=== PATIENT | female | born 1945 | race Caucasian/White ===

== ENCOUNTER → 2017-11-18 | Outpatient (CLI) | payer MEDICARE ==
--- NOTE | 2017-11-19 08:22 | MM ---
Reason for exam: screening (asymptomatic). Last mammogram was performed 1 year and 3 months ago. History: Patient is postmenopausal, has history of breast cancer at age 65, and is nulliparous. Mastectomy of the left breast. Taking antineoplastic for 5 years. Physical Findings: A clinical breast exam by your physician is recommended on an annual basis and results should be correlated with mammographic findings. MG 3D Screening Mammo W/Cad Bilateral CC and MLO view(s) were taken. XCCL view(s) were taken of the right breast. Prior study comparison: August 09, 2016, mammogram, performed at [place]. August 08, 2015, mammogram, performed at [place]. There is a 2.5cm central medial anterior depth right breast mass for which ultrasound will be performed. There are numerous benign appearing right calcifications, similar to priors. New right axillary adenopathy. ASSESSMENT: Incomplete: need additional imaging evaluation, BI-RAD 0 RECOMMENDATION: Ultrasound of the right breast. [facility] will attempt to contact patient to return for ultrasound.
== END | disposition home or self-care (01) ==
LOC: RADMAMWWP 12:28
PROVIDERS: ATTEND Family Medicine
DX: Z12.31 Encounter for screening mammogram for malignant neoplasm of breast (principal)
CPT/HCPCS: 77063; 77067

== ENCOUNTER → 2017-11-22 | Outpatient (CLI) | payer MEDICARE ==
--- NOTE | 2017-11-25 09:10 | USB ---
Reason for exam: additional evaluation requested from abnormal screening. History: Patient is postmenopausal, has history of breast cancer at age 65, and is nulliparous. Mastectomy of the left breast. Taking antineoplastic for 5 years. Physical Findings: Nurse Summary: 2cm nodule, moves (nurse dw). US Breast Workup RT Right complete breast ultrasound includes all four quadrants, the retroareolar region and axilla. Finding demonstrates a 2.8 x 2.0 x 2.4cm irregular, solid, hypoechoic, vascular, irregular lesion at 2 o'clock, highly suspicious for malignancy. Axillary node is normal morphologically. These results were verbally communicated with the patient and result sheet given to the patient on 11/22/17. ASSESSMENT: Highly suggestive of malignancy, BI-RAD 5 RECOMMENDATION: Ultrasound core biopsy of the right breast. Called Dr. Quintanilla with mammographic findings and has scheduled an appointment for the patient for 11/22/17 at 2:[address] Richmond. Biopsy scheduled for 11/27/17 at 2:20. PRELIMINARY REPORT CALLED AND FAXED TO DR. RICHMOND ON 11/25/17.
== END | disposition home or self-care (01) ==
LOC: RADMAMWWP 13:18
PROVIDERS: ATTEND Family Medicine
DX: R92.8 Other abnormal and inconclusive findings on diagnostic imaging of breast (principal)

== ENCOUNTER → 2017-11-22 | Outpatient (CLI) | payer MEDICARE ==
[2017-11-22 14:59] VITALS: BP 125/79; PULSE 73; RESP 18; TEMP 97.8; BMI 33.6
--- NOTE | 2017-11-22 15:21 | P.GSHP ---
History of Present Illness H&P Date: 11/22/17 Mrs. Barrera is a 71-year-old white female who presents with a mass palpable in the right breast. She had recent radiographic workup which revealed an area of concern in the right breast for which ultrasound-guided core biopsy was recommended. The patient states that she does feel a lump in her breast and noted for approximately a week. She denies any pain. She denies any nipple discharge or changes. Of significance is the fact that she is status post left mastectomy approximately 6 years ago. This was done for a stage I breast cancer. The patient did not have radiation therapy and did not have chemotherapy. She did have anti-hormonal therapy with aromatase inhibitor which she stopped approximately a year ago. Family History: 1. patient: left breast mastectomy 2. sister: uterine cancer from this menarhce: 12 : none, single women, patient is a Lesbian and no one significant at this time menopause: 50's hormones: none BCP: none Past surgical history: 1. Left breast mastectomy 2. Tonsillectomy Past medical history: 1.diabetes 2. High cholesterol 3. Hypertension Social history: Smoke: 1/2 PPD for 15 years Stopped 40 years ago Alcohol: occasional Drugs: Negative - Constitutional Constitutional: Denies chills, Denies fever - EENT Eyes: bilateral decreased vision (wears glasses), denies pain Ears: bilateral: tinnitus (occasional), deny: decreased hearing Ears, nose, mouth and throat: Denies headache, Denies sore throat - Breasts Breasts: bilateral: as per HPI - Cardiovascular Cardiovascular: Reports high blood pressure, Denies chest pain, Denies shortness of breath - Respiratory Respiratory: Denies cough, Denies 7 - Gastrointestinal Gastrointestinal: Denies abdominal pain, Denies diarrhea, Denies nausea, Denies vomiting - Menstruation Menstruation: Reports postmenopausal - Musculoskeletal Musculoskeletal: Denies myalgias - Integumentary Integumentary: Denies pruritus, Denies rash - Neurological Neurological: Denies numbness, Denies weakness - Psychiatric Psychiatric: Denies anxiety, Denies depression - Endocrine Endocrine: Denies fatigue, Denies weight change - Hematologic/Lymphatic Comment: asprin, mobic (prn), ibuprofen (prn), vitamen E - Allergic/Immunologic Comment: cats and metformin Past Medical History Past Medical History: Hypertension Past Surgical History: Breast Surgery, Tonsillectomy Smoking Status: Former smoker Surgical - Exam - General well developed, well nourished, no distress - Eyes normal ocular movement, no icteric - ENT no hearing loss, no congestion - Neck no masses, trachea midline - Respiratory normal respiratory effort, clear to auscultation - Cardiovascular Rhythm: regular Heart Sounds: normal: S1, S2 - Abdomen Abdomen: soft, non tender, no guarding, no rigid, no rebound - Neurologic no disoriented, no combative - Musculoskeletal normal gait - Psychiatric oriented to time, oriented to person, oriented to place, speech is normal, memory intact Breast examination: Right breast: Multiple positional exam reveals an area approximately a 2-3 cm in size at the 4 o'clock position just medial to the nipple areolar complex, no other dominant masses or nodules of concern are noted Right axilla: No adenopathy of concern Left breast: Patient is status post left mastectomy no evidence of recurrent disease in the left chest wall Left axilla: No adenopathy of concern Assessment and Plan Assessment: Impression/plan: 1. 71-year-old white female presents with a nodule in the right breast 2. Radiographic evidence of mass in the right breast 3. Hypertension 4. Diabetes Plan: 1. Right breast ultrasound core biopsy 2. Medical management of diabetes and hypertension 3. Follow-up in 2 weeks with results of ultrasound core biopsy Cc: Dr. Quintanilla
== END ==
LOC: WWCWWP 14:35
PROVIDERS: ATTEND Surgery
DX: Z53.9 Procedure and treatment not carried out, unspecified reason (principal)

== ENCOUNTER → 2017-11-27 | Day surgery (SDC) | payer MEDICARE ==
[2017-11-27 13:42] VITALS: RESP 16; BMI 33.6
[2017-11-27 15:02] VITALS: BP 111/72; PULSE 69; TEMP 97.9
--- NOTE | 2017-11-27 15:27 | USB ---
EXAMINATION TYPE: US biopsy breast VAD RT DATE OF EXAM: 11/27/2017 CLINICAL HISTORY: R92.8 ABN MAMMO. TECHNIQUE: Ultrasound guided core biopsy of right 2:00 breast. COMPARISON: NONE FINDINGS: The procedure of ultrasound guided core biopsy was explained to the patient. Benefits, alternatives, and risks were discussed. An informed consent was then obtained. The patient was placed in supine positioning for imaging and for the procedure. The overlying skin was prepped and draped in usual sterile fashion. Lidocaine buffered with bicarbonate was used as anesthetic into the skin and subcutaneous tissue up to area of concern in the right breast. A onesimo was made with surgical scalpel. Under ultrasound guidance, a 12-gauge vacuum assisted biopsy gun device was used to obtain 5 core samples. Following this, a biopsy clip was left in lesion. Post procedural mammogram indicates appropriate deployment of microclip marker. The patient tolerated the procedure well without any immediate complication. The patient was kept in the radiology department for short stay after the procedure and then discharged home in stable condition. IMPRESSION: Successful, uncomplicated ultrasound guided core biopsy of area of concern in the right two o'clock breast, full pathology results to follow. 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 See Surgical Pathology Cancer Case Summary and Comment. Recommendation Surgical consult of the right breast. JULIA
--- NOTE | 2017-11-28 08:17 | MM ---
Reason for exam: additional evaluation requested from abnormal screening. Last mammogram was performed less than 1 month ago. History: Patient is postmenopausal, has history of breast cancer at age 65, and is nulliparous. Mastectomy of the left breast. Taking antineoplastic for 5 years. MG Diagnostic Mammo RT Wo CAD CC and ML view(s) were taken of the right breast. Prior study comparison: November 18, 2017, bilateral MG 3d screening mammo w/cad. August 09, 2016, mammogram, performed at [place]. ASSESSMENT: Post procedure mammogram for marker placement RECOMMENDATION: Surgical consultation of the right breast.
== END ==
LOC: RADUSWWP 13:15
PROVIDERS: ATTEND Surgery
DX: C50.211 Malignant neoplasm of upper-inner quadrant of right female breast (principal); Z88.8 Allergy status to other drugs, medicaments and biological substances
CPT/HCPCS: 88305; 77065; 19083; A4648; J2001

== ENCOUNTER → 2017-12-05 | Outpatient (CLI) | payer MEDICARE ==
[2017-12-05 16:00] VITALS: BP 126/60; PULSE 76; BMI 33.7
--- NOTE | 2017-12-05 17:01 | P.PN ---
Progress Note - Text Progress Note Date: 12/05/17 Pamela presents for results of her core biopsy on her right breast. Pathology revealed an invasive ductal carcinoma. This was grade 3. It was estrogen receptor weakly positive, CA negative and HER-2 negative. The lesion is approximately 2.8 cm in size, T2, No, Mo. The patient wishes to undergo a lumpectomy. She has some chronic calcifications in the breast which are not believed to be part of the cancer. At had a long discussion with her regarding options including lumpectomy and raditaion therapy versus mastectomy. At this time she wishes an attempt at lumpectomy. She understands the risks and benefits as well as sentinel node biopsy procedure and possible axillary node dissection. Following discussion needle localization right breast lumpectomy, sentinel node injection, sentinel node biopsy possible axillary node dissection will be scheduled in the near future. Risk and benefits including bleeding and infection reaction to the anesthetic have been discussed with the patient. Additionally she understands if the margins are positive she may need to have a completion mastectomy. Physical exam: Mild ecchymosis at the core biopsy site cc: Dr. Quintanilla
== END | disposition home or self-care (01) ==
LOC: WWCWWP 15:42
PROVIDERS: ATTEND Surgery
DX: Z53.9 Procedure and treatment not carried out, unspecified reason (principal)

== ENCOUNTER 2017-12-17 07:06 | Day surgery (SDC) | payer MEDICARE ==
[2017-12-09 11:54] VITALS: BMI 33.6
[~2017-12-17 07:06] MED LIST: DEXAMETHASONE SOD PHOSPHATE 10 MG/ML 1 ML VIAL IV ONE; HEPARIN SODIUM,PORCINE 5,000 UNIT/ML 1 ML VIAL SQ ONE; LACTATED RINGERS 1,000 ML IV SCH; MIDAZOLAM 2 MG/2 ML VIAL IV PRN; ONDANSETRON 4 MG/2 ML VIAL IVP ONE; ceFAZolin IN SWFI 2 GM/20 ML SYRINGE IVP ONE; fentaNYL (PF) 50 MCG/ML 2 ML AMP IV PRN
[2017-12-17 07:48] LABS: Glucose,Whole Blood 168 mg/dL (75-99)
[2017-12-17] MEDS ORDERED: LIDOCAINE 1% 20 ML VIAL (10MG/ML) FOR IV START INTRADERMA ONE (07:49)
[2017-12-17] MEDS ORDERED: SODIUM BICARB 4% 5 ML VIAL (0.48 MEQ/ML) MISCELLANE ONE (08:56)
[2017-12-17] MEDS ORDERED: LIDOCAINE 1% INJ 10MG/ML (20 ML MDV) SQ ONE (08:56)
[2017-12-17] MEDS ORDERED: KETOROLAC 30 MG/ML 1 ML VIAL ONE (09:56)
[2017-12-17] MEDS ORDERED: LIDOCAINE 1% INJ 10MG/ML (20 ML MDV) ONE (09:56)
[2017-12-17] MEDS ORDERED: fentaNYL (PF) 50 MCG/ML 2 ML AMP ONE (09:56)
[2017-12-17] MEDS ORDERED: PHENYLEPHRINE-0.9% NACL SYG 1 MG/10 ML SYRINGE ONE (09:56)
[2017-12-17] MEDS ORDERED: MIDAZOLAM 2 MG/2 ML VIAL ONE (09:56)
[2017-12-17] MEDS ORDERED: SUCCINYLCHOLINE CHLORIDE 100 MG/5 ML SYR IV ONE (09:56)
[2017-12-17] MEDS ORDERED: PROPOFOL 10 MG/ML 20 ML VIAL IV ONE (09:56)
[2017-12-17] MEDS ORDERED: ePHEDrine SULFATE/0.9% NACL/PF 50 MG/5 ML SYRINGE IV ONE (09:56)
[2017-12-17] MEDS ORDERED: HEPARIN SODIUM,PORCINE 5,000 UNIT/ML 1 ML VIAL SQ ONE (10:14)
--- NOTE | 2017-12-17 10:17 | P.NAPBC ---
NAPBC Queries - [facility] Queries Was patient's case review presented at [facility] tumor board? If no, comment.: Yes Was patient's pathology reviewed at [facility]? If no, comment.: Yes Was breast conservation surgery offered? If no, comment.: Yes Was sentinel node biopsy offered? If no, comment.: Yes Was diagnosis confirmed by percutaneous core biopsy? If no, comment.: Yes If mastectomy patient, was a preop referral to a reconstructive surgeon offered? : Yes (Patient opted for lumpectomy.)
--- NOTE | 2017-12-17 11:59 | P.OP ---
Date of Procedure: 12/17/17 Preoperative Diagnosis: Right breast cancer Postoperative Diagnosis: Same Procedure(s) Performed: Right breast sentinel node biopsy, right breast lumpectomy with placement of biozorb Implants: biozorb Anesthesia: PATRICE Surgeon: Brissa Richmond Estimated Blood Loss (ml): 10 IV fluids (ml): 800 Pathology: other (Palmetto node, right breast lumpectomy specimen) Condition: stable Disposition: same day Indications for Procedure: Right breast cancer Operative Findings: Palmetto node identified, dense fibrotic breast tissue, palpable malignancy in the right breast Description of Procedure: The patient was taken to the operating room and following induction of general anesthesia the right breast and axilla were prepped and draped in a sterile fashion. The axilla was approached initially. The the neoprobe was used to identify the area of greatest radioactivity and an incision was made at this site. It was carried down to the area of the axillary tissue for a palpable radioactive lymph node was identified. The 10 second count on the lymph node was 17,000. The surrounding axillary tissue 10 second count was 34. The lymph node was removed and the axilla was examined for hemostasis. After assured that hemostasis was attained intraoperative consultation was discussed with radiation oncology. The feeling was that as per tumor Board we would not do a frozen section but save the lymph node for permanent section as the patient would most likely be receiving radiation therapy for the lumpectomy. Therefore the node was not sent for frozen section evaluation. No other large suspicious lymph nodes were palpated. The deep tissues were closed using a 3-0 Vicryl suture. The skin was closed using a 4-0 Monocryl. The breast was approached. An incision was made to the hook of the needle and surrounding tissue was excised. The malignancy itself was felt to be palpable. We excised widely around the malignancy. The remainder of the breast tissue was very dense and firm however. The specimen was painted and radiographic confirmation the area of concern about removed was obtained. The wound was evaluated and after we were assured that hemostasis was attained arthroplasty tissue freeing was performed for the superior and inferior flaps. Approximately 25 cm of tissue was freed. This dissection had been performed down to the pectoralis major muscle. A sizer was utilized and a 3 x 4 BioSorb was chosen. The BioSorb was placed in the cavity and the surrounding breast tissue was closed over the top of this and this was secured in place using 3-0 Vicryl suture. The skin was closed using a 4-0 Vicryl suture and a 4-0 Monocryl. All instrument and sponge counts were correct at the end of the case. The patient tolerated the procedure in stable condition.
--- NOTE | 2017-12-17 12:02 | P.DS ---
Providers Attending physician: Brissa Richmond Primary care physician: Yahir Quintanilla Plan - Discharge Summary New Discharge Prescriptions: No Action Cyclobenzaprine [Flexeril] 10 mg PO TID PRN PRN Reason: Pain Lisinopril [Zestril] 10 mg PO DAILY Cetirizine HCl 10 mg PO HS Atorvastatin [Lipitor] 80 mg PO DAILY Ibuprofen [Motrin] 800 mg PO DAILY PRN PRN Reason: Pain Cholecalciferol (Vitamin D3) [Vitamin D3] 2,000 unit PO DAILY Aspirin [Adult Low Dose Aspirin EC] 81 mg PO DAILY Zolpidem [Ambien] 5 mg PO HS PRN PRN Reason: Insomnia Pioglitazone HCl [Actos] 15 mg PO DAILY Melatonin 10 mg PO HS PRN PRN Reason: Insomnia Acetaminophen [Tylenol Extra Strength] 500 mg PO BID PRN PRN Reason: Pain Discharge Medication List Aspirin [Adult Low Dose Aspirin EC] 81 mg PO DAILY 11/22/17 [History] Atorvastatin [Lipitor] 80 mg PO DAILY 11/22/17 [History] Cetirizine HCl 10 mg PO HS 11/22/17 [History] Cholecalciferol (Vitamin D3) [Vitamin D3] 2,000 unit PO DAILY 11/22/17 [History] Cyclobenzaprine [Flexeril] 10 mg PO TID PRN 11/22/17 [History] Ibuprofen [Motrin] 800 mg PO DAILY PRN 11/22/17 [History] Lisinopril [Zestril] 10 mg PO DAILY 11/22/17 [History] Acetaminophen [Tylenol Extra Strength] 500 mg PO BID PRN 12/09/17 [History] Melatonin 10 mg PO HS PRN 12/09/17 [History] Pioglitazone HCl [Actos] 15 mg PO DAILY 12/09/17 [History] Zolpidem [Ambien] 5 mg PO HS PRN 12/09/17 [History] Follow up Appointment(s)/Referral(s): Brissa Richmond MD [STAFF PHYSICIAN] - 1 Week Activity/Diet/Wound Care/Special Instructions: Do not drive today The patient may shower after 48 hours Discharge Disposition: HOME SELF-CARE
[2017-12-17 12:14] VITALS: TEMP 96.9
[2017-12-17 12:20] LABS: Glucose,Whole Blood 203 mg/dL (75-99)
[2017-12-17] MEDS ORDERED: INSULIN ASPART 100 UNIT/ML 1 ML 10 ML VIAL SQ ONE (12:30)
[2017-12-17 12:52] VITALS: RESP 16
[2017-12-17] MEDS ORDERED: HYDROcodone/APAP 5-325MG 1 EACH TAB PO ONE (13:15)
[2017-12-17 13:28] LABS: Glucose,Whole Blood 177 mg/dL (75-99)
[2017-12-17 13:30] VITALS: BP 138/76; PULSE 84
--- NOTE | 2017-12-17 14:02 | NM ---
EXAMINATION TYPE: NM sentinel node injection DATE OF EXAM: 12/17/2017 COMPARISON: NONE HISTORY: Right breast cancer TECHNIQUE AND FINDINGS: The procedure of sentinel lymph node injection was explained to the patient. The benefits, alternatives, and risks were discussed. An informed consent was then obtained. Overlying skin is cleaned with sterile alcohol. Single injection of procedure was performed up are ou ter Quadrant. The patient tolerated the procedure well without any immediate complication. The patient was kept in the radiology department for short stay after the procedure and then transferred to presurgical [facility] ing. IMPRESSION: Right breast radiotracer injection for sentinel node localization as above.
--- NOTE | 2017-12-20 16:45 | MM ---
EXAMINATION TYPE: MG surgical specimen RT DATE OF EXAM: 12/17/2017 COMPARISON: NONE CLINICAL HISTORY: Abnormal biopsy TECHNIQUE: Needle localization with wire placement and surgical excision of area of concern in the ri ght breast. FINDINGS: The procedure of needle localization with wire placement and than surgical excision was exp lained to the patient. Benefits, alternatives, and risks were discussed. An informed consent was th en obtained. The shortest pathway for procedure was chosen. The overlying skin was prepped and draped in usual st erile fashion. Lidocaine buffered with bicarbonate was used as anesthetic into the skin and subcutan eous tissue up to the level of area of concern. A 7 cm needle was used. It was placed under mammogr aphic guidance. Subsequent 90 degrees mammogram show the needle to be in satisfactory position relat aleksandar to the targeted area. At this point, wire was placed and the needle was withdrawn. The wire was fixed to patient's skin. Images were marked for surgeon. The patient tolerated the procedure well without any immediate complication. The patient was kept in the radiology department for short stay after the procedure and then taken to surgery for surgical e xcision. Surgical clip and wire are identified in specimen mammogram. IMPRESSION: 1. Successful wire localization and excision Recommendations: 1. Recommendations are pending pathology results.
== END 2017-12-17 14:03 | disposition home or self-care (01) ==
LOC: OR 07:06
PROVIDERS: ATTEND Surgery
DX: D05.11 Intraductal carcinoma in situ of right breast (principal); I10 Essential (primary) hypertension; E78.5 Hyperlipidemia, unspecified; G47.33 Obstructive sleep apnea (adult) (pediatric); E11.9 Type 2 diabetes mellitus without complications; F41.9 Anxiety disorder, unspecified; K76.0 Fatty (change of) liver, not elsewhere classified; Z85.3 Personal history of malignant neoplasm of breast; Z90.12 Acquired absence of left breast and nipple; Z99.89 Dependence on other enabling machines and devices; Z79.84 Long term (current) use of oral hypoglycemic drugs; Z79.82 Long term (current) use of aspirin; Z79.899 Other long term (current) drug therapy; Z88.8 Allergy status to other drugs, medicaments and biological substances; Z87.891 Personal history of nicotine dependence
CPT/HCPCS: 38525; 19301; 88342; 88307; 88341; 76098; 19281; 38792; A4648; A9520; J2250; J1644; J1100; J2405; J2001; J3010; J1885; J2370; J0330; J2704

== ENCOUNTER → 2018-05-15 | Outpatient (CLI) | payer MEDICARE ==
--- NOTE | 2018-05-16 11:20 | ECHOF ---
Referral Reason:R06.02 Shortness of Breath MEASUREMENTS -------- HEIGHT: 154.9 cm WEIGHT: 86.2 kg BP: 136/63 RVIDd: 2.7 cm (< 3.3) IVSd: 1.2 cm (0.6 - 1.1) LVIDd: 4.1 cm (3.9 - 5.3) LVPWd: 1.0 cm (0.6 - 1.1) IVSs: 1.6 cm LVIDs: 2.9 cm LVPWs: 1.5 cm LA Diam: 3.3 cm (2.7 - 3.8) LAESV Index (A-L): 19.20 ml/m Ao Diam: 2.8 cm (2.0 - 3.7) AV Cusp: 1.8 cm (1.5 - 2.6) MV EXCURSION: 15.271 mm (> 18.000) MV EF SLOPE: 50 mm/s (70 - 150) EPSS: 0.6 cm MV E Sam: 1.10 m/s MV DecT: 177 ms MV A Sam: 1.08 m/s MV E/A Ratio: 1.02 AV maxP.00 mmHg AV meanP.89 mmHg FINDINGS -------- Sinus rhythm. This was a technically adequate study. The left ventricular size is normal. There is borderline concentric left ventricular hypertrophy. Overall left ventricular systolic function is normal with, an EF between 60 - 65 %. The right ventricle is normal in size. Normal LA size by volume 22+/-6 ml/m2. The right atrium is normal in size. There is mild aortic valve sclerosis. Peak/mean gradient across the Aortic Valve is 14.00mmHg / 7.8 9mmHg. Mild mitral annular calcification present. There is trace to mild mitral regurgitation. Trace tricuspid regurgitation present. Trace/mild (physiologic) pulmonic regurgitation. The aortic root size is normal. Normal inferior vena cava with normal inspiratory collapse consistent with estimated right atrial pre ssure of 5 mmHg. There is no pericardial effusion. CONCLUSIONS -------- 1. Sinus rhythm. 2. This was a technically adequate study. 3. The left ventricular size is normal. 4. There is borderline concentric left ventricular hypertrophy. 5. Overall left ventricular systolic function is normal with, an EF between 60 - 65 %. 6. The right ventricle is normal in size. 7. Normal LA size by volume 22+/-6 ml/m2. 8. The right atrium is normal in size. 9. There is mild aortic valve sclerosis. 10. Peak/mean gradient across the Aortic Valve is 14.00mmHg / 7.89mmHg. 11. Mild mitral annular calcification present. 12. There is trace to mild mitral regurgitation. 13. Trace tricuspid regurgitation present. 14. Trace/mild (physiologic) pulmonic regurgitation. 15. The aortic root size is normal. 16. Normal inferior vena cava with normal inspiratory collapse consistent with estimated right atrial pressure of 5 mmHg. 17. There is no pericardial effusion. OCE[employer]IC SCIENCES PROFESSOR: Kathryn Deluca RDCS
== END | disposition home or self-care (01) ==
LOC: RADECHMAIN 10:52
PROVIDERS: ATTEND Family Medicine
DX: I34.0 Nonrheumatic mitral (valve) insufficiency (principal); I35.8 Other nonrheumatic aortic valve disorders; I34.8 Other nonrheumatic mitral valve disorders
CPT/HCPCS: 93306

== ENCOUNTER → 2018-07-09 | Outpatient (CLI) | payer MEDICARE ==
--- NOTE | 2018-07-09 14:37 | XR ---
EXAMINATION TYPE: XR thoracic spine 2V DATE OF EXAM: 07/09/2018 COMPARISON: NONE HISTORY: Pain Alignment is anatomic. There is no compression deformities. Vertebral body height and disc interspa rae are maintained. Hypertrophic and degenerative changes noted. Atherosclerotic change aorta. There is subsegmental consolidation along the medial aspect of the right lower lobe. IMPRESSION: 1. Multilevel degenerative disc disease with no compression deformity. There is subsegmental consolid ation along the medial aspect of the right lower lobe. Correlate clinically and if warranted with [facility]ena st x-ray.
== END | disposition home or self-care (01) ==
LOC: RADXRMAIN 14:10
PROVIDERS: ATTEND Family Medicine
DX: M51.34 Other intervertebral disc degeneration, thoracic region (principal)
CPT/HCPCS: 72070

== ENCOUNTER → 2018-07-16 | Outpatient (CLI) | payer MEDICARE ==
--- NOTE | 2018-07-16 14:49 | XR ---
EXAMINATION TYPE: XR chest 2V DATE OF EXAM: 07/16/2018 COMPARISON: Thoracic spine x-ray July 09, 2018 HISTORY: Recent abnormal x-ray. TECHNIQUE: Frontal and lateral views of the chest are obtained. FINDINGS: Area of concern medial right lung base is felt to reflect eventration of right hemidiaphrag m There is some chronic parenchymal change bilaterally most prominent in the apices without suspicio us focal air space opacity, pleural effusion, or pneumothorax seen. The cardiac silhouette size is w ithin normal limits with atherosclerotic change in the aortic knob. The osseous structures are some what demineralized. IMPRESSION: No suspicious acute pulmonary process.
== END ==
LOC: RADXRMAIN 14:22
PROVIDERS: ATTEND Family Medicine
DX: R91.8 Other nonspecific abnormal finding of lung field (principal)
CPT/HCPCS: 71046

== ENCOUNTER → 2019-01-02 | Outpatient (CLI) | payer MEDICARE ==
--- NOTE | 2019-01-02 17:42 | BD ---
EXAMINATION TYPE: Axial Bone Density DATE OF EXAM: 01/02/2019 COMPARISON: NONE CLINICAL HISTORY: Height: 61.5 Weight: 195.7 FRAX RISK QUESTIONS: Alcohol (3 or more units per day): no Family History (Parent hip fracture): no Glucocorticoids (More than 3mos): no (Ex: prednisone, prednisolone, methylprednisolone, dexamethasone, and hydrocortisone). History of Fracture in Adulthood: no Secondary Osteoporosis: 1. Type 1 Diabetes: no 2. Hyperthyroidism: no 3. Menopause before 45: no 4. Malnutrition: no 5. Chronic liver disease: no Rheumatoid Arthritis: no Current Tobacco Use: no RISK FACTORS HISTORY OF: Family History of Osteoporosis: no Active: sometimes Diet low in dairy products/other sources of calcium: yes Postmenopausal woman: age53 Lost more than 2 inches in height since high school: no MEDICATIONS: diabetic meds, cholesterol meds, bp meds, breast cancer pill Additional History: breast cancer with chemo and radiation in 2018 EXAM MEASUREMENTS: Bone mineral densitometry was performed using the [employer]. Bone mineral density as measured about the Lumbar spine is: ----- L1-L4(G/cm2): 1.140 T Score Values are as follows: ----- L2: -0.8 ----- L3: -0.5 ----- L4: -0.1 ----- L1-L4: -0.3 Bone mineral density : baseline Bone mineral density about the R hip (g/cm2): 1.067 Bone mineral density about the L hip (g/cm2): 0.952 T Score values are as follows: -----R Neck: 0.2 -----L Neck: -0.6 -----R Total: 0.8 -----L Total: 0.2 Bone mineral density : baseline IMPRESSION: Normal (Values between +1 and -1 indicate normal bone mass). Consider repeating this study in 5 year s or sooner if there is some new clinical indication. NOTE: T-SCORE=SD OF THE YOUNG ADULT MEAN.
== END ==
LOC: RADBDWWP 10:27
PROVIDERS: ATTEND Internal Medicine Hematology & Oncology
DX: N95.1 Menopausal and female climacteric states (principal); C50.211 Malignant neoplasm of upper-inner quadrant of right female breast; Z79.890 Hormone replacement therapy
CPT/HCPCS: 77080

== ENCOUNTER → 2019-01-26 | Outpatient (CLI) | payer MEDICARE ==
--- NOTE | 2019-01-26 14:07 | MM ---
Reason for exam: additional evaluation requested from prior study. Last mammogram was performed 1 year and 2 months ago. History: Patient is postmenopausal, has history of breast cancer at age 71, and is nulliparous. Malignant MG pre op needle loc RT of the right breast, December 17, 2017. Lumpectomy of the right breast, December 17, 2017. Malignant US biopsy breast VAD RT of the right breast, November 27, 2017. Mastectomy of the left breast. Took progesterone for 6 months. Taking antineoplastic. Physical Findings: Nurse did not find any significant physical abnormalities on exam. MG 3D Diag Mammo W/Cad RT CC and MLO view(s) were taken of the right breast. Prior study comparison: November 27, 2017, right breast MG diagnostic mammo RT wo CAD. November 18, 2017, bilateral MG 3d screening mammo w/cad. The breast tissue is heterogeneously dense. This may lower the sensitivity of mammography. Finding #1: Architectural distortion in the middle position of the right breast. Finding #2: There are typically benign dystrophic, round, regional calcifications in the right breast. Right skin thickening. These results were verbally communicated with the patient and result sheet given to the patient on 01/26/19. ASSESSMENT: Probably benign, BI-RAD 3 RECOMMENDATION: Follow-up diagnostic mammogram of the right breast in 6 months.
== END | disposition home or self-care (01) ==
LOC: RADMAMWWP 12:56
PROVIDERS: ATTEND Radiology Radiation Oncology
DX: C50.411 Malignant neoplasm of upper-outer quadrant of right female breast (principal); C77.9 Secondary and unspecified malignant neoplasm of lymph node, unspecified; Z92.3 Personal history of irradiation
CPT/HCPCS: 77065; G0279; 77061

== ENCOUNTER → 2019-02-23 | Outpatient (CLI) | payer MEDICARE ==
--- NOTE | 2019-02-24 16:03 | BMR ---
EXAMINATION TYPE: MR breast BILAT wo/w con DATE OF EXAM: 02/23/2019 COMPARISON: Exams dating back to 08/09/2016. 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 Patient was also treated with radiation therapy on th e right. Personal history of left breast cancer with remote history of left mastectomy. TECHNIQUE: A series of fat and water weighted images in the long and short axis views of both breasts are obtained in conjunction with dynamic contrast MRI with subtraction technique. The patient was i njected with 10 mL intravenous Gadavist gadolinium contrast. Three-dimensional and additional postp rocessing imaging is created on independent workstation and reviewed during official interpretation o f this study. FINDINGS: There is mild right-sided background parenchymal enhancement in the breast is composed of heterogenou s fibroglandular tissue. There is surgical absence of the left breast from mastectomy. The right breast demonstrates post ther apy change with susceptibility artifact from surgical device/biozorb interstitial thickening and skin thickening. There is a slightly prominent lymph node at the beginning of the right internal mammary chain in the anterior high mediastinum measuring 6 mm. This is seen on the initial postcontrast series 701 image 3 14 (axial T1 postcontrast fat sat sequence). Just superior to this there is a second prominent thorac ic lymph node measuring 8 mm in short axis. Inferior to the first described lymph node there is a non enlarged right internal mammary lymph node that is asymmetric to the left containing a fatty hilum on image 296 measuring 5 mm in short axis. The remainder of the right and left internal mammary chains are unremarkable without additional enlarged or prominent lymph nodes. There is no suspicious axillar y adenopathy bilaterally. No suspicious internal mammary adenopathy bilaterally. There is a solitary focus of enhancement within the in the upper inner quadrant approximately 2.5-3 c m from the nipple. This displays kinetics and measures 5 mm. This is marked on subtraction series 702 image 182. IMPRESSION: BI-RADS 0-incomplete. Additional imaging is recommended. 1. Second look ultrasound is recommended of the right breast to evaluate a 5 mm focus of enhancement of the upper inner quadrant located 2.5 to 3 cm from the nipple. 2. Prominent internal mammary chain lymph nodes are seen on the right. PET/CT could evaluate these ly mph nodes. 3. Post therapy changes of the breasts with surgical and radiation changes on the right and mastectom y on the left.
== END ==
LOC: RADMRIMAIN 12:00
PROVIDERS: ATTEND Radiology Radiation Oncology
DX: R92.8 Other abnormal and inconclusive findings on diagnostic imaging of breast (principal); R59.0 Localized enlarged lymph nodes; C50.411 Malignant neoplasm of upper-outer quadrant of right female breast; C77.9 Secondary and unspecified malignant neoplasm of lymph node, unspecified; Z92.3 Personal history of irradiation; Z17.0 Estrogen receptor positive status [ER+]; Z98.890 Other specified postprocedural states; Z90.12 Acquired absence of left breast and nipple
CPT/HCPCS: C8937; C8908; A9585; 77049

== ENCOUNTER 2019-03-11 07:58 | Day surgery (SDC) | payer MEDICARE ==
[2019-03-10 08:37] VITALS: BMI 34.9
--- NOTE | 2019-03-11 07:13 | P.GSHP ---
History of Present Illness H&P Date: 03/11/19 CHIEF COMPLAINT: Colon screen HISTORY OF PRESENT ILLNESS: The patient is a 73-year-old female who presents for colon screen. Lower endoscopy was offered for further evaluation and management. PAST MEDICAL HISTORY: Please see list. PAST SURGICAL HISTORY: Please see list. MEDICATIONS: Please see list. ALLERGIES: Please see list. SOCIAL HISTORY: No illicit drug use FAMILY HISTORY: No reports of Crohn disease or ulcerative colitis. REVIEW OF ORGAN SYSTEMS: CONSTITUTIONAL: No reports of fevers or chills. PHYSICAL EXAM: VITAL SIGNS: Stable GENERAL: Well-developed pleasant in no acute distress. HEENT: No scleral icterus. Extraocular movements grossly intact. Moist buccal mucosa. NECK: Supple without lymphadenopathy. CHEST: Unlabored respirations. Equal bilateral excursions. CARDIOVASCULAR: Regular rate and rhythm. Distal 2+ pulses. ABDOMEN: Soft, nontender, nondistended. MUSCULOSKELETAL: No clubbing, cyanosis, or edema. ASSESSMENT: 1. Colon screen. PLAN: 1. Recommend proceeding with a lower endoscopy Past Medical History Past Medical History: Cancer, Diabetes Mellitus, Hyperlipidemia, Hypertension, Sleep Apnea/CPAP/BIPAP Additional Past Medical History / Comment(s): IRON INJECTIONS CHILD.,SLEEP APNEA, BACK PAIN, HX OF EDEN BREAST CANCER WITH MASTECTOMY, LUMPECTOMY CHEMO (LAST TX JUN 2018) AND RADIATION (LAST TX JULY 2018) History of Any Multi-Drug Resistant Organisms: None Reported Past Surgical History: Breast Surgery, Tonsillectomy Additional Past Surgical History / Comment(s): left mastectomy 2011, BREAST BX (11/27/17), RIGHT BREAST LUMPECTOMY Past Anesthesia/Blood Transfusion Reactions: No Reported Reaction, Motion Sickness Past Psychological History: No Psychological Hx Reported Additional Psychological History / Comment(s): . Smoking Status: Former smoker Past Alcohol Use History: Rare Additional Past Alcohol Use History / Comment(s): QUIT SMOKING OVER 30 YEARS AGO. SMOKED 1/2 PPD. SMOKED FOR 20 YEARS. Past Drug Use History: None Reported - Past Family History Mother Additional Family Medical History / Comment(s): CVA Sister(s) Family Medical History: Cancer Additional Family Medical History / Comment(s): UTERINE SARCOMA Medications and Allergies Home Medications Medication Instructions Recorded Confirmed Type Atorvastatin [Lipitor] 80 mg PO DAILY 11/22/17 03/10/19 History Cetirizine HCl 10 mg PO HS 11/22/17 03/10/19 History Cholecalciferol (Vitamin D3) 2,000 unit PO DAILY 11/22/17 03/10/19 History [Vitamin D3] Cyclobenzaprine [Flexeril] 10 mg PO DAILY PRN 11/22/17 03/10/19 History Ibuprofen [Motrin] 800 mg PO DAILY PRN 11/22/17 03/10/19 History Lisinopril [Zestril] 10 mg PO DAILY 11/22/17 03/10/19 History Acetaminophen [Tylenol Extra 500 mg PO DIRECTED PRN 12/09/17 03/10/19 History Strength] Pioglitazone HCl [Actos] 30 mg PO DAILY 12/09/17 03/10/19 History Zolpidem [Ambien] 5 mg PO HS PRN 12/09/17 03/10/19 History Anastrozole [Arimidex] 1 mg PO DAILY 03/10/19 03/10/19 History Turmeric Root Extract [Turmeric] 1 tab PO DAILY 03/10/19 03/10/19 History Allergies Allergy/AdvReac Type Severity Reaction Status Date / Time metformin Allergy Diarrhea Verified 03/10/19 08:12
[~2019-03-11 07:58] MED LIST changes: -DEXAMETHASONE SOD PHOSPHATE 10 MG/ML 1 ML VIAL IV ONE; -HEPARIN SODIUM,PORCINE 5,000 UNIT/ML 1 ML VIAL SQ ONE; +LIDOCAINE 1% 20 ML VIAL (10MG/ML) FOR IV START INTRADERMA PRN; -MIDAZOLAM 2 MG/2 ML VIAL IV PRN; -ONDANSETRON 4 MG/2 ML VIAL IVP ONE; -ceFAZolin IN SWFI 2 GM/20 ML SYRINGE IVP ONE; -fentaNYL (PF) 50 MCG/ML 2 ML AMP IV PRN
[2019-03-11 08:45] VITALS: TEMP 97.6
[2019-03-11 08:48] LABS: Glucose,Whole Blood 122 mg/dL (75-99)
[2019-03-11] MEDS ORDERED: LIDOCAINE 1% INJ 10MG/ML (20 ML MDV) ONE (08:51)
[2019-03-11] MEDS ORDERED: PROPOFOL 10 MG/ML 20 ML VIAL IV ONE (08:51)
--- NOTE | 2019-03-11 09:13 | P.PCN ---
Date of Procedure: 03/11/19 Description of Procedure: PREOPERATIVE DIAGNOSIS: Personal history of colon polyps Colonoscopy screening. POSTOPERATIVE DIAGNOSIS: Personal history of colon polyps Colonoscopy screening. Severe large diverticulosis, pandiverticulosis. OPERATION: Colonoscopy to the ileocecal valve and appendiceal orifice. SURGEON: Blanca Murray MD. ANESTHESIA: MAC. INDICATIONS: The patient is a 73-year-old female who presents for colonoscopy screening. Last colonoscopy 5 years. Benefits and risks were described and informed consent was obtained. DESCRIPTION OF PROCEDURE: The patient had undergone a GoLYTELY prep. She had been brought into the operating room and laid in the left lateral decubitus position. After adequate intravenous sedation, the rectum was examined with 2% lidocaine jelly. No external hemorrhoids were encountered. The rectal tone was within normal limits. No lesions were palpated in the rectal vault. An Olympus colonoscope was advanced until the ileocecal valve and appendiceal orifice were clearly viewed. The prep was fair with a few semisolid stool. The scope was removed with visualization of each mucosal fold. Multiple [place] scattered diverticulosis was encountered throughout the colon consistent with pandiverticulosis. No large colonic polyps were found. No evidence of focal colitis was found. Retroflexion of the scope demonstrated grade 1 internal hemorrhoids without active bleeding or inflammation. The colon was desufflated. The patient had tolerated the procedure well. Withdrawal time was over 6 minutes. FINDINGS: Aronchick preparation quality scale 2 (1-5) Internal hemorrhoids, grade 1 No external prolapsed hemorrhoids. No arteriovenous malformations. [place] scattered diverticulosis with pandiverticulosis No large adenomatous No focal colitis. RECOMMENDATIONS: Lower endoscopy in 3 years, 2021 or Cologaurd Plan - Discharge Summary New Discharge Prescriptions: No Action Cyclobenzaprine [Flexeril] 10 mg PO DAILY PRN PRN Reason: Pain Lisinopril [Zestril] 10 mg PO DAILY Cetirizine HCl 10 mg PO HS Atorvastatin [Lipitor] 80 mg PO DAILY Ibuprofen [Motrin] 800 mg PO DAILY PRN PRN Reason: Pain Cholecalciferol (Vitamin D3) [Vitamin D3] 2,000 unit PO DAILY Zolpidem [Ambien] 5 mg PO HS PRN PRN Reason: Insomnia Pioglitazone HCl [Actos] 30 mg PO DAILY Acetaminophen [Tylenol Extra Strength] 500 mg PO DIRECTED PRN PRN Reason: Pain Anastrozole [Arimidex] 1 mg PO DAILY Turmeric Root Extract [Turmeric] 1 tab PO DAILY Discharge Medication List Atorvastatin [Lipitor] 80 mg PO DAILY 11/22/17 [History] Cetirizine HCl 10 mg PO HS 11/22/17 [History] Cholecalciferol (Vitamin D3) [Vitamin D3] 2,000 unit PO DAILY 11/22/17 [History] Cyclobenzaprine [Flexeril] 10 mg PO DAILY PRN 11/22/17 [History] Ibuprofen [Motrin] 800 mg PO DAILY PRN 11/22/17 [History] Lisinopril [Zestril] 10 mg PO DAILY 11/22/17 [History] Acetaminophen [Tylenol Extra Strength] 500 mg PO DIRECTED PRN 12/09/17 [History] Pioglitazone HCl [Actos] 30 mg PO DAILY 12/09/17 [History] Zolpidem [Ambien] 5 mg PO HS PRN 12/09/17 [History] Anastrozole [Arimidex] 1 mg PO DAILY 03/10/19 [History] Turmeric Root Extract [Turmeric] 1 tab PO DAILY 03/10/19 [History] Follow up Appointment(s)/Referral(s): Blanca Murray MD [STAFF PHYSICIAN] - As Needed Patient Instructions/Handouts: Diverticulosis Diet (GEN), Diverticulosis (ED) Activity/Diet/Wound Care/Special Instructions: Repeat colonoscopy 3 years, 2021 Discharge Disposition: HOME SELF-CARE
[2019-03-11 09:14] VITALS: RESP 18
[2019-03-11 09:27] VITALS: BP 112/76; PULSE 74
== END 2019-03-11 09:41 | disposition home or self-care (01) ==
LOC: ORWHC2ENDO 07:58
PROVIDERS: ATTEND Surgery Plastic and Reconstructive Surgery
DX: Z12.11 Encounter for screening for malignant neoplasm of colon (principal); K55.20 Angiodysplasia of colon without hemorrhage; K57.30 Diverticulosis of large intestine without perforation or abscess without bleeding; K64.0 First degree hemorrhoids; I10 Essential (primary) hypertension; E78.5 Hyperlipidemia, unspecified; E11.9 Type 2 diabetes mellitus without complications; Z86.010 Personal history of colon polyps; Z88.8 Allergy status to other drugs, medicaments and biological substances; Z79.811 Long term (current) use of aromatase inhibitors; Z79.84 Long term (current) use of oral hypoglycemic drugs; Z79.899 Other long term (current) drug therapy; Z90.89 Acquired absence of other organs; Z98.890 Other specified postprocedural states
CPT/HCPCS: J2001; J2704; G0105

== ENCOUNTER → 2019-06-05 | Outpatient (CLI) | payer MEDICARE ==
--- NOTE | 2019-06-05 10:56 | USB ---
Reason for exam: clinical finding. History: Patient is postmenopausal, has history of breast cancer at age 71, and is nulliparous. Malignant MG pre op needle loc RT of the right breast, December 17, 2017. Lumpectomy of the right breast, December 17, 2017. Malignant US biopsy breast VAD RT of the right breast, November 27, 2017. Mastectomy of the left breast. Took progesterone for 6 months. Taking antineoplastic. Physical Findings: Nurse Summary: breast firm and distorted, no palpable abnormality felt, nipple indrawn (nurse pushpa). US Breast RT Right complete breast ultrasound includes all four quadrants, the retroareolar region and axilla. Finding demonstrates a hypoechoic area of scar at 2 o'clock, a 10 x 5 x 12mm hypoechoic lesion at 4 o'clock and a 3 x 2 x 4mm oval, hypoechoic lesion at 1 o'clock area of scar. Believed to correspond to MRI abnormality 702 image 183. These results were verbally communicated with the patient and result sheet given to the patient on 06/05/19. ASSESSMENT: Suspicious, BI-RAD 4 RECOMMENDATION: Ultrasound core biopsy of the right breast. Called office with mammographic findings and has scheduled an appointment for the patient for 07/03/19 at 4:[address] Tafoya. Biopsy scheduled for 06/24/19 at 12:20. PRELIMINARY REPORT CALLED AND FAXED TO DR. TAFOYA ON 06/05/19.
== END | disposition home or self-care (01) ==
LOC: RADUSWWP 08:23
PROVIDERS: ATTEND Internal Medicine Hematology & Oncology
DX: Z08 Encounter for follow-up examination after completed treatment for malignant neoplasm (principal); N63.20 Unspecified lump in the left breast, unspecified quadrant; N64.52 Nipple discharge; R92.8 Other abnormal and inconclusive findings on diagnostic imaging of breast; Z85.3 Personal history of malignant neoplasm of breast

== ENCOUNTER → 2019-06-24 | Day surgery (SDC) | payer MEDICARE ==
[2019-06-24 11:46] VITALS: RESP 16
[2019-06-24 13:10] VITALS: BP 111/71; PULSE 70; TEMP 97.4
--- NOTE | 2019-06-24 13:18 | USB ---
EXAMINATION TYPE: US biopsy breast VAD RT, MG diagnostic mammo RT wo CAD DATE OF EXAM: 06/24/2019 CLINICAL HISTORY: R92.8 Abnormal ultrasound. TECHNIQUE: Ultrasound guided core biopsy of right breast. COMPARISON: MRI of the bilateral breasts dated 02/23/2019 and right breast ultrasound dated 06/05/2019 FINDINGS: The procedure of ultrasound guided core biopsy was explained to the patient. Benefits, alternatives, and risks were discussed. An informed consent was then obtained. Preprocedural timeout was performed. On review of images the 4 mm mass at the 1:00 position, 2 cm in the nipple there is a well-defined posterior wall and some increased through transmission and this was felt to be a small complicated cyst on related to the MR finding. There is distortion of the nipple and medial breast from prior surgery and therefore o'clock positions are not perfectly accurate. In the absence of additional ultrasound finding the zone A area of scar at the 4:00 position was biopsied as this did appear towards the skin surface as on MRI. The patient will be brought back for MR T1 nonfat sat sequence at no charge to assess for biopsy marker concordance. The patient was placed in supine positioning for imaging and for the procedure. The overlying skin was prepped and draped in usual sterile fashion. 10 cc of 1% lidocaine was used as anesthetic into the skin and subcutaneous tissue up to area of concern at the 4:00 position in zone A of the right breast. Under ultrasound guidance, a 12-gauge vacuum assisted biopsy gun device was used to obtain 5 core samples. Following this, a ribbon-shaped biopsy marker was left in mass. Postprocedure mammogram demonstrates appropriate biopsy marker placement. The patient tolerated the procedure well without any immediate complication. The patient was kept in the radiology department for short stay after the procedure and then discharged home in stable condition. IMPRESSION: Successful, uncomplicated ultrasound guided core biopsy of an area of concern in the right breast at the 4:00 position, full pathology results to follow. The patient is being brought back for single sequence T1 nonfat sat axial MRI to ensure biopsy marker concordance with the MRI finding. Pathology Results: Benign RIGHT BREAST, NEEDLE CORE BIOPSY: Sclerotic fibroadipose tissue with ectatic vessels. Negative for neoplasm. Recommendation Follow up breast MRI recommended in 6 months. MRI focus was located 1.7cm from the biopsy marker. Therefore 6 month follow up MRI recommended. MTDD
--- NOTE | 2019-06-24 14:14 | BMR ---
EXAMINATION TYPE: MR breast RT wo con DATE OF EXAM: 06/24/2019 COMPARISON: MRI breast dated 06/24/2019 HISTORY: Verify Clip Placement TECHNIQUE T1 nonfat saturated sequence was performed to verify I see marker placement in relation to the focus of abnormal enhancement on the prior breast MRI dated 02/23/2019. FINDINGS: The biopsy marker is noted adjacent to but approximately 1.7 cm posterior to the expected l ocation of the abnormal enhancing focus. The area that was biopsied appears avascular on MRI and like ly relates to scar. Correlation will be made with pathology results. IMPRESSION: The MRI focus measuring 5 mm with no sonographic correlate can be followed in 6 months with MRI to as sess for interval growth pending biopsy results of the ultrasound guided biopsy of 04/23/2019.
== END ==
LOC: RADUSWWP 11:16
PROVIDERS: ATTEND Internal Medicine Hematology & Oncology
DX: N64.89 Other specified disorders of breast (principal); Z85.3 Personal history of malignant neoplasm of breast
CPT/HCPCS: 88305; 77065; 19083; 77046; A4648; J2001

== ENCOUNTER → 2020-01-01 | Outpatient (CLI) | payer MEDICARE ==
--- NOTE | 2020-01-04 07:55 | MM ---
Reason for exam: follow-up at short interval from prior study. Last mammogram was performed 6 months ago. History: Patient is postmenopausal, has history of breast cancer at age 71, and is nulliparous. Benign US biopsy breast VAD RT of the right breast, June 24, 2019. Malignant MG pre op needle loc RT of the right breast, December 17, 2017. Lumpectomy of the right breast, December 17, 2017. Malignant US biopsy breast VAD RT of the right breast, November 27, 2017. Mastectomy of the left breast. Took progesterone for 6 months. Taking antineoplastic beginning at age 71. Physical Findings: Nurse did not find any significant physical abnormalities on exam. MG 3D Diag Mammo W/Cad RT CC and MLO view(s) were taken of the right breast. Prior study comparison: June 24, 2019, right breast MG diagnostic mammo RT wo CAD. January 26, 2019, right breast MG 3d diag mammo w/cad RT. The breast tissue is heterogeneously dense. This may lower the sensitivity of mammography. Benign appearing calcifications in the right breast, stable. Post operative changes with skin thickening. These results were verbally communicated with the patient and result sheet given to the patient on 01/01/20. ASSESSMENT: Benign, BI-RAD 2 RECOMMENDATION: Follow-up diagnostic mammogram of the right breast in 6 months.
== END | disposition home or self-care (01) ==
LOC: RADMAMWWP 14:06
PROVIDERS: ATTEND Internal Medicine Hematology & Oncology
DX: Z08 Encounter for follow-up examination after completed treatment for malignant neoplasm (principal); Z85.3 Personal history of malignant neoplasm of breast; Z90.12 Acquired absence of left breast and nipple
CPT/HCPCS: 77065; G0279; 77061

== ENCOUNTER → 2020-09-16 | Outpatient (CLI) | payer MEDICARE ==
--- NOTE | 2020-09-16 18:08 | XR ---
EXAMINATION TYPE: XR chest 2V DATE OF EXAM: 09/16/2020 CLINICAL HISTORY: R06.02 SOB. TECHNIQUE: Frontal and lateral view of the chest. COMPARISON: 07/16/2018 FINDINGS: There is eventration of the anterior right hemidiaphragm. Biapical pleural thickening rede monstrated. The cardiomediastinal silhouette is within normal limits for size. Pulmonary vasculature is normal. There may be subsegmental atelectasis at the left lung base versus focal nodular density. No pleural effusion. No pneumothorax seen. No acute displaced osseous fracture. IMPRESSION: Subsegmental atelectasis at the left lung base versus a focal nodular density. Recommend CT of the ch est for further evaluation.
== END | disposition home or self-care (01) ==
LOC: RADXRMAIN 14:10
PROVIDERS: ATTEND Family Medicine
DX: R06.02 Shortness of breath (principal)
CPT/HCPCS: 71046

== ENCOUNTER → 2020-10-04 | Outpatient (CLI) | payer MEDICARE ==
[2020-10-04 11:36] LABS: African American GFR (CKD) >90 (>60 ml/min/1.73 sqM); Blood Urea Nitrogen 9 mg/dL (7-17); Non-African American GFR(CKD) >90 (>60 ml/min/1.73 sqM)
--- NOTE | 2020-10-04 13:08 | CT ---
EXAMINATION TYPE: CT chest w con DATE OF EXAM: 10/04/2020 COMPARISON: Chest x-ray 09/16/2020 HISTORY: F/U Chest xray CT DLP: 558.1 mGycm Automated exposure control for dose reduction was used. CONTRAST: CT scan of the chest is performed with IV Contrast, patient injected with 100 mL of Isovue 300. FINDINGS: LUNGS: The lungs are grossly clear, there is no concerning parenchymal mass or nodule identified. Nod ular scarring left lower lobe posteriorly. There is no pleural effusion or pneumothorax seen. The t racheobronchial tree is patent. MEDIASTINUM: There are no greater than 1 cm hilar or mediastinal lymph nodes. No pericardial effusi on is seen. Thoracic aorta is of normal caliber. The heart is not enlarged. UPPER ABDOMEN: No significant abnormality appreciated. OTHER: Left mastectomy change and changes of right-sided lumpectomy. IMPRESSION: No evidence for concerning pulmonary nodule or mass. Nodular scarring left lower lobe.
== END | disposition home or self-care (01) ==
LOC: RADCTMAIN 10:39
PROVIDERS: ATTEND Family Medicine
DX: J98.4 Other disorders of lung (principal)
CPT/HCPCS: 82565; 84520; 71260; 36415; Q9967

== ENCOUNTER → 2020-11-03 | Outpatient (CLI) | payer MEDICARE ==
--- NOTE | 2020-11-04 12:40 | ECHOF ---
Referral Reason: MEASUREMENTS -------- HEIGHT: 160.0 cm WEIGHT: 90.7 kg BP: RVIDd: 1.8 cm (< 3.3) IVSd: 1.1 cm (0.6 - 1.1) LVIDd: 3.2 cm (3.9 - 5.3) LVPWd: 1.2 cm (0.6 - 1.1) IVSs: 1.5 cm LVIDs: 1.4 cm LVPWs: 1.8 cm Ao Diam: 2.8 cm (2.0 - 3.7) AV Cusp: 1.8 cm (1.5 - 2.6) LA Diam: 2.7 cm (2.7 - 3.8) MV EXCURSION: 14.577 mm (> 18.000) MV EF SLOPE: 44 mm/s (70 - 150) EPSS: 0.7 cm MV E Sam: 0.80 m/s MV DecT: 243 ms MV A Sam: 0.81 m/s MV E/A Ratio: 0.99 RAP: 5.00 mmHg RVSP: 12.42 mmHg FINDINGS -------- This was a technically adequate study. The left ventricular size is normal. Left ventricular wall thickness is normal. Overall left vent ricular systolic function is normal with, an EF between 55 - 60 %. The right ventricle is normal in size. The left atrial size is normal. The right atrial size is normal. The aortic valve is trileaflet and appears structurally normal. The mitral valve is normal. There is trace mitral regurgitation. The tricuspid valve appears structurally normal. Mild tricuspid regurgitation present. Right vent ricular systolic pressure is normal at < 35 mmHg. There is no pulmonic regurgitation present. The aortic root size is normal. Normal inferior vena cava with normal inspiratory collapse consistent with estimated right atrial pre ssure of 5 mmHg. There is no pericardial effusion. CONCLUSIONS -------- 1. The left ventricular size is normal. 2. Left ventricular wall thickness is normal. 3. Overall left ventricular systolic function is normal with, an EF between 55 - 60 %. 4. There is trace mitral regurgitation. 5. Mild tricuspid regurgitation present. 6. There is no pericardial effusion. INSPECTOR [employer] EMISSIONS: Adelaida Hopkins RDCS
== END | disposition home or self-care (01) ==
LOC: RADECHMAIN 13:54
PROVIDERS: ATTEND Family Medicine
DX: I08.1 Rheumatic disorders of both mitral and tricuspid valves (principal)
CPT/HCPCS: 93306

== ENCOUNTER → 2020-12-07 | Outpatient (CLI) | payer MEDICARE ==
[2020-12-07 16:32] LABS: African American GFR (CKD) >90 (>60 ml/min/1.73 sqM); Blood Urea Nitrogen 12 mg/dL (7-17); Non-African American GFR(CKD) 88 (>60 ml/min/1.73 sqM)
--- NOTE | 2020-12-08 13:16 | CT ---
CT CHEST FOR PULMONARY EMBOLISM. EXAMINATION TYPE: CT angio chest DATE OF EXAM: 12/07/2020 INDICATION: Dyspnea. CT DLP: 526.7 mGycm, Automated exposure control for dose reduction was used. CONTRAST: Patient injected with 55ml mL of Isovue 370. COMPARISON: 10/04/2020 TECHNIQUE: CT of the chest is performed on a spiral scan at 2 mm thick sections. Study is performed with intravenous contrast timed for evaluation for pulmonary embolism. This will limit additional po rtions of the evaluation. 3-D MIP images reconstructed by the technologist are reviewed on the compu ter in the coronal and sagittal planes. FINDINGS: No persistent filling defects are evident to suggest an acute pulmonary embolism. No mediastinal or hilar adenopathy enlarged by CT criteria is evident. The ascending aorta diameter at the level of the main pulmonary artery is 3. cm. The main pulmonary artery diameter at the bifurc ation is 2.8 cm. Lung windows are clear. Limited CT section through the upper abdomen are unremarkable. IMPRESSIONS: 1. No acute pulmonary embolism
== END | disposition home or self-care (01) ==
LOC: RADCTMAIN 15:51
PROVIDERS: ATTEND Internal Medicine Critical Care Medicine
DX: R06.00 Dyspnea, unspecified (principal)
CPT/HCPCS: 82565; 84520; 71275; 36415; Q9967

== ENCOUNTER → 2021-01-06 | Outpatient (CLI) | payer MEDICARE ==
--- NOTE | 2021-01-09 09:03 | MM ---
Reason for exam: additional evaluation requested from prior study. Last mammogram was performed 1 year ago. History: Patient is postmenopausal, has history of breast cancer at age 71, and is nulliparous. Benign US biopsy breast VAD RT of the right breast, June 24, 2019. Malignant MG pre op needle loc RT of the right breast, December 17, 2017. Lumpectomy of the right breast, December 17, 2017. Malignant US biopsy breast VAD RT of the right breast, November 27, 2017. Mastectomy of the left breast. Took progesterone for 6 months. Taking antineoplastic beginning at age 71. Physical Findings: Nurse did not find any significant physical abnormalities on exam. MG 3D Diag Mammo W/Cad RT CC and MLO view(s) were taken of the right breast. Prior study comparison: January 01, 2020, right breast MG 3d diag mammo w/cad RT. June 24, 2019, right breast MG diagnostic mammo RT wo CAD. January 26, 2019, right breast MG 3d diag mammo w/cad RT. November 18, 2017, bilateral MG 3d screening mammo w/cad. There are scattered fibroglandular densities. No significant new findings when compared with previous films. These results were verbally communicated with the patient and result sheet given to the patient on 01/06/21. ASSESSMENT: Benign, BI-RAD 2 RECOMMENDATION: Follow-up diagnostic mammogram of the right breast in 1 year.
== END | disposition home or self-care (01) ==
LOC: RADMAMWWP 13:37
PROVIDERS: ATTEND Internal Medicine Hematology & Oncology
DX: R92.8 Other abnormal and inconclusive findings on diagnostic imaging of breast (principal); Z78.0 Asymptomatic menopausal state; Z85.3 Personal history of malignant neoplasm of breast
CPT/HCPCS: 77065; G0279; 77061

== ENCOUNTER → 2021-01-13 | Outpatient (CLI) | payer MEDICARE ==
[2021-01-13 13:27] LABS: MCH 32.4 pg (25.0-35.0); MCHC 33.4 g/dL (31.0-37.0); MCV 96.9 fL (80.0-100.0); Mean Platelet Volume 6.9; Platelet Count 328 k/uL (150-450); RBC 3.71 m/uL (3.80-5.40); RDW 13.7 % (11.5-15.5); WBC 7.9 k/uL (3.8-10.6)
[2021-01-13 13:32] LABS: African American GFR (CKD) >90 (>60 ml/min/1.73 sqM); Anion Gap 8 mmol/L; Blood Urea Nitrogen 14 mg/dL (7-17); Carbon Dioxide 25 mmol/L (22-30); Chloride 103 mmol/L (98-107); Non-African American GFR(CKD) 86 (>60 ml/min/1.73 sqM); Potassium 4.2 mmol/L (3.5-5.1); Sodium 136 mmol/L (137-145)
== END | disposition home or self-care (01) ==
LOC: LABPAT 11:58
PROVIDERS: ATTEND Internal Medicine
DX: Z01.812 Encounter for preprocedural laboratory examination (principal); I50.32 Chronic diastolic (congestive) heart failure
CPT/HCPCS: 36415; 80051; 82565; 84520; 85027

== ENCOUNTER → 2021-01-13 | Outpatient (CLI) | payer MEDICARE | END | disposition home or self-care (01) | LOC: LABWHC1 12:01 | PROVIDERS: ATTEND Internal Medicine | DX: I50.9 Heart failure, unspecified (principal); R06.00 Dyspnea, unspecified | CPT/HCPCS: 36415; 83880 ==

== ENCOUNTER 2021-01-18 10:36 | Day surgery (SDC) | payer MEDICARE ==
[2021-01-12 15:12] VITALS: BMI 40.6
[~2021-01-18 10:36] MED LIST changes: +ALPRAZolam 0.25 MG TAB PO PRN; +ALPRAZolam 0.5 MG TAB PO PRN; +ASPIRIN 325 MG TAB PO STA; +HEPARIN SODIUM,PORCINE 10,000 UNIT in SODIUM CHLORIDE 0.9% 1,000 ML IRRIGATION PRN; +HEPARIN SODIUM,PORCINE 2,500 UNIT in SODIUM CHLORIDE 0.9% 250 ML IRRIGATION PRN; -LACTATED RINGERS 1,000 ML IV SCH; -LIDOCAINE 1% 20 ML VIAL (10MG/ML) FOR IV START INTRADERMA PRN; +NITROGLYCERIN SL TABS 0.4 MG TAB SUBLINGUAL PRN; +SODIUM CHLORIDE 0.9% 1,000 ML in EMPTY BAG 1 BAG IV ONE
[2021-01-18 11:03] LABS: Glucose,Whole Blood 131 mg/dL (75-99)
[2021-01-18 11:08] VITALS: RESP 16; TEMP 97
[2021-01-18] MEDS ORDERED: SODIUM CHLORIDE 0.9% 1,000 ML IV ONE (11:08)
[2021-01-18] MEDS ORDERED: LIDOCAINE 1% INJ 10MG/ML (20 ML MDV) ONE (12:39)
[2021-01-18] MEDS ORDERED: VERAPAMIL 2.5 MG/ML 2 ML AMP ONE (12:40)
[2021-01-18] MEDS ORDERED: fentaNYL (PF) 50 MCG/ML 2 ML AMP ONE (12:41)
[2021-01-18] MEDS ORDERED: fentaNYL (PF) 50 MCG/ML 2 ML AMP IV ONE (12:54)
[2021-01-18] MEDS: LIDOCAINE 1% INJ 10MG/ML (20 ML MDV) SQ ONE ×2 (12:54→13:11)
[2021-01-18] MEDS ORDERED: MIDAZOLAM 2 MG/2 ML VIAL IV ONE (12:54)
[2021-01-18] MEDS ORDERED: RX INFO: IV CONTRAST WAS GIVEN 1 EACH MISC MISCELLANE PRN (13:43)
[2021-01-18] MEDS ORDERED: CYCLOBENZAPRINE 10 MG TAB PO PRN (13:44)
[2021-01-18] MEDS ORDERED: ACETAMINOPHEN TAB 500 MG TAB PO PRN (13:44)
[2021-01-18] MEDS ORDERED: IBUPROFEN 800 MG TAB PO PRN (13:44)
[2021-01-18] MEDS ORDERED: ZOLPIDEM 5 MG TAB PO PRN (13:44)
[2021-01-18] MEDS ORDERED: SODIUM CHLORIDE 0.9% 1,000 ML IV SCH (13:45)
[2021-01-18] MEDS ORDERED: IOPAMIDOL-370 125ML BTL INJ ONE (13:50)
[2021-01-18 13:51] LABS: O2 Sat Blood Gas 96.8 %
[2021-01-18 13:52] LABS: O2 Sat Blood Gas 67.6 %
[2021-01-18 13:52] LABS: O2 Sat Blood Gas 63.5 %
[2021-01-18 17:20] VITALS: PULSE 76
[2021-01-18 18:30] VITALS: BP 145/61
[2021-01-18] MEDS ORDERED: NON FORMULARY DRUG (Cetirizine Hcl [Cetirizine Hcl] 10 MG Tablet) PO SCH (21:00)
[2021-01-19] MEDS ORDERED: NON FORMULARY DRUG (Cholecalciferol (Vitamin D3) [Vitamin D3] 2,000 UNIT Capsule) PO SCH (09:00)
[2021-01-19] MEDS ORDERED: lisinopriL 10 MG TAB PO SCH (09:00)
[2021-01-19] MEDS ORDERED: NON FORMULARY DRUG (Turmeric Root Extract [Turmeric] 500 MG Capsule) PO SCH (09:00)
[2021-01-19] MEDS ORDERED: ATORVASTATIN 80 MG TAB PO SCH (09:00)
[2021-01-19] MEDS ORDERED: PIOGLITAZONE 15 MG TAB PO SCH (09:00)
[2021-01-19] MEDS ORDERED: NON FORMULARY DRUG (Aspirin [Adult Low Dose Aspirin Ec] 81 MG Tablet) PO SCH (09:00)
[2021-01-19] MEDS ORDERED: ANASTROZOLE 1 MG TAB PO SCH (09:00)
--- NOTE | 2021-01-19 09:18 | P.CARDCATH ---
Description of Procedure: Date of Procedure: 01/18/2021 PROCEDURES PERFORMED: Left heart catheterization, right heart catheterization, bilateral coronary angiography INDICATION: Dyspnea on exertion concerning for anginal equivalent HISTORY: Patient is a pleasant 75-year-old female with history of hypertension, hyperlipidemia, diabetes mellitus type 2, breast cancer, remote tobacco abuse, mild COPD who has been noting increased lower extremity edema as well as dyspnea on exertion which has been worse over last few months. She originally had a workup with a Lexiscan stress test which showed a fixed inferior defect related to diaphragmatic attenuation and had attempted diuretics without much improvement. Given continued symptoms and significant risk factors without clear-cut etiology, patient desired a definitive diagnosis and therefore right and left heart catheterization was recommended. Her proBNP was noted to be normal at 33. CONSENT:I have discussed the risks, benefits and alternative therapies for the above-mentioned procedure and for both sedation/analgesia as well as necessary blood product administration, if indicated, as they pertain to this patient. The patient has indicated understanding and acceptance of the risks and procedures discussed. PROCEDURE: After the risks, benefits and alternatives of the above mentioned procedure explained in detail with the patient, informed consent was obtained. Patient was taken to the catheterization lab and prepped and draped in usual fashion. 1% lidocaine was used to anesthetize the right radial artery. Right radial approach was attempted with ultrasound guidance however her radial artery was somewhat tortuous and was unable to be obtained. The micro wire was attempted to be advanced however was unable and therefore radial approach was aborted. Therefore using ultrasound guidance and micropuncture technique, a 6- Uzbek sheath was placed in the right femoral artery using modified Seldinger technique. Left coronary angiography was performed with a 6-Uzbek JL 4.0 catheter and right coronary angiography was performed with a 6-Uzbek JR4 catheter in various views. A 6-Uzbek FR6 catheter was inserted into the left ventricle and pressure measurements were obtained. Next using ultrasound guidance a 8 Uzbek sheath was placed in the right femoral vein. A 7 Uzbek [place]-Jg catheter was inserted into the pulmonary Wedge position and pressure measurements were obtained in the pulmonary tablet wedge position, pulmonary artery, right ventricle and right atrium. Oxygen saturations were obtained from the pulmonary artery, right atrium and right femoral artery for cardiac output Kim calculations. The [place]-Jg catheter was then removed. Right femoral angiography showed anatomy and hematocrit for closure and therefore sheath was pulled manually and hemostasis was achieved. The patient tolerated the procedure well. Patient was transported back to the post catheterization holding area in stable condition. Conscious Sedation: Patient was monitored under the direct supervision of vision of myself for conscious sedation using Versed and fentanyl for a total duration of 45 minutes RIGHT HEART CATHETERIZATION: PCWP: 12 PA: 49/17, mean 34 RV: 50/8 RA: 12 Ao: 139/59 LV: 137/6, LVEDP 18 PA O2 sat: 68% RA O2 sat: 64% RFA O2 sat: 97% SELECTIVE CORONARY ARTERIOGRAPHY: LEFT MAIN: The left main is a large caliber vessel which bifurcates into the LAD and circumflex. There is no significant stenosis. LEFT ANTERIOR DESCENDING CORONARY ARTERY: LAD is a large caliber vessel which wraps around to the apex. There is no significant stenosis. LEFT CIRCUMFLEX CORONARY ARTERY: Left circumflex is a moderate caliber vessel without significant stenosis. RIGHT CORONARY ARTERY: The right coronary artery is a large caliber vessel which gives off a PDA and PLV branch and is the dominant vessel. There is no significant stenosis. FINAL IMPRESSION: 1. Normal coronary arteries as described above. 2. High normal left and right sided filling pressures 3. Mild pulmonary hypertension 4. Normal cardiac output PLAN: 1. Aggressive risk factor modification per most recent ACC/AHA guidelines. 2. Patient's right and left sided pressures appear borderline elevated and we will attempt increase diuresis. Although proBNP can be falsely low in obesity, proBNP noted to be only 33 3. Follow-up in the office in 1-2 weeks.
== END 2021-01-18 18:19 | disposition home or self-care (01) ==
LOC: CATHCVL 10:36
PROVIDERS: ATTEND Internal Medicine
DX: I11.0 Hypertensive heart disease with heart failure (principal); I50.32 Chronic diastolic (congestive) heart failure; I27.20 Pulmonary hypertension, unspecified; E78.5 Hyperlipidemia, unspecified; E11.9 Type 2 diabetes mellitus without complications; J44.9 Chronic obstructive pulmonary disease, unspecified; E66.09 Other obesity due to excess calories; Z68.41 Body mass index [BMI] 40.0-44.9, adult; F17.210 Nicotine dependence, cigarettes, uncomplicated; Z85.3 Personal history of malignant neoplasm of breast; Z79.899 Other long term (current) drug therapy; Z82.49 Family history of ischemic heart disease and other diseases of the circulatory system
CPT/HCPCS: 93460; 85018; 82810; C1769 ×3; C1894 ×3; J2250; J2001; J3010; Q9967

== ENCOUNTER → 2021-06-01 | Outpatient (CLI) | payer MEDICARE ==
--- NOTE | 2021-06-01 16:30 | BD ---
EXAMINATION TYPE: Axial Bone Density DATE OF EXAM: 06/01/2021 COMPARISON: NONE CLINICAL HISTORY: Height: 61 Weight: 217.4 FRAX RISK QUESTIONS: Alcohol (3 or more units per day): no Family History (Parent hip fracture): no Glucocorticoids (More than 3mos): no (Ex: prednisone, prednisolone, methylprednisolone, dexamethasone, and hydrocortisone). History of Fracture in Adulthood: no Secondary Osteoporosis: 1. Type 1 Diabetes: no 2. Hyperthyroidism: no 3. Menopause before 45: no 4. Malnutrition: no 5. Chronic liver disease: no Rheumatoid Arthritis: no Current Tobacco Use: no RISK FACTORS HISTORY OF: Surgery to Spine/Hip(right/left)/Wrist (right/left): no Family History of Osteoporosis: no Active: no Diet low in dairy products/other sources of calcium: no Postmenopausal woman: yes Lost more than 2 inches in height since high school: no MEDICATIONS: diabetic meds, hormone eugenia Thyroid Medications: synthroid How Long: Additional History: EXAM MEASUREMENTS: Bone mineral densitometry was performed using the Nasseo System. Bone mineral density as measured about the Lumbar spine is: ----- L1-L4(G/cm2): 1.129 T Score Values are as follows: ----- L2: -1.1 ----- L3: -0.1 ----- L4: -0.2 ----- L1-L4: -0.4 Bone mineral density has: increased 0.1 % since study of: 01.02.2019 Bone mineral density about the R hip (g/cm2): 0.893 Bone mineral density about the L hip (g/cm2): 0.885 T Score values are as follows: -----R Neck: -1.0 -----L Neck: -1.1 -----R Total: 0.2 -----L Total: -0.3 Bone mineral density has: decreased -6.2 % since study of: 01.02.2019 IMPRESSION: Normal (Values between +1 and -1 indicate normal bone mass). Consider repeating this study in 5 year s or sooner if there is some new clinical indication. NOTE: T-SCORE=SD OF THE YOUNG ADULT MEAN.
== END | disposition home or self-care (01) ==
LOC: RADBDWWP 10:36
PROVIDERS: ATTEND Internal Medicine Hematology & Oncology
DX: C50.211 Malignant neoplasm of upper-inner quadrant of right female breast (principal); Z79.890 Hormone replacement therapy
CPT/HCPCS: 77080

== ENCOUNTER → 2021-06-14 | Outpatient (CLI) | payer MEDICARE ==
--- NOTE | 2021-06-14 13:49 | CONS ---
CONSULTATION This 75-year-old lady has been evaluated in Sleep Center for obstructive sleep apnea- hypopnea syndrome. HISTORY OF PRESENT ILLNESS/SLEEP-WAKE EVALUATION: The patient was diagnosed with obstructive sleep apnea 9 years ago in the state of [place]. She was recommended to use CPAP equipment, but she had difficulties with CPAP and was not able to use it. At the present time her sleep schedule is from between 11 p.m. and midnight until 8 or 8:30 a.m. No significant problems with falling asleep, although she reads in the bedroom. At present she has difficulties sleeping in bed, and most of the night she stays in the chair. She wakes up from sleep 3 to 4 times, and every time has episodes of nocturia. She feels that her mouth is dry. She has episodes of choking and gasping for air. No history of hypnagogic hallucinations, sleep paralysis or cataplexy. [place] Sleepiness Scale is 10. The patient may take one nap between 4 and 7 p.m. PAST MEDICAL HISTORY: Positive for hypertension, diabetes mellitus, hyperlipidemia, sinus problems, breast carcinoma. PAST SURGICAL HISTORY: Mastectomy, lumpectomy with radiation and chemotherapy on the right side in 2018 and on the left side mastectomy in 2012. Tonsillectomy many years ago. MEDICATIONS: 1. Atorvastatin 80 mg once a day. 2. Lisinopril 10 mg once a day. 3. Cetirizine 10 mg once a day. 4. Pioglitazone 30 mg once a day. 5. Anastrozole 1 mg once a day. 6. Ibuprofen. 7. Melatonin. 8. 40 mg once a week. 9. every 3 to 4 days. SOCIAL HISTORY: Positive for smoking many years ago; quit 25 years ago. Alcohol consumption occasional (beer). FAMILY HISTORY: Stroke, emphysema in brother. REVIEW OF SYSTEMS: Multiple awakenings from sleep, sleepiness during the day, shortness of breath while walking, difficulties sleeping in bed; sleeps on recliner. No fevers. No double vision. No recent chest pain. No shortness of breath. No abdominal pain. No bleeding episodes. No blood in the urine. No seizure episodes. PHYSICAL EXAMINATION: GENERAL: Pleasant lady without distress. VITAL SIGNS: BP 127/72, HR 74, RR 18, height 5 feet 3/4 inch, weight 217.4 pounds, body mass index 41.4, temperature 96.8, oxygen saturation at room air 96%. HEENT: PERRLA, EOMI, evaluation of oropharynx showed tongue protrudes midline. Extremely low position of soft palate; Mallampati IV. NECK: Supple, no JVD. Thyroid is not palpable. Wide neck; 19-1/2 inches in circumference. LUNGS: Clear to percussion and to auscultation. Good air exchange. No wheezing or rhonchi. HEART: S1, S2 regular. No murmurs, gallops, or rubs. ABDOMEN: Obese. EXTREMITIES: One plus ankle edema. PRINTED CIRCUIT BOARD PREASSEMBLER: Awake, alert, and oriented X3. Cranial nerves 2 to 7 intact. There is no fasciculation or atrophy. noted. No focal deficits observed. IMPRESSION: 1. History of obstructive sleep apnea diagnosed in another state 9 years ago. Patient was not able to use CPAP equipment at that time. Patient's weight has increased since that time by about 50 pounds. Multiple awakenings from sleep with nocturia, extremely low position of soft palate, Mallampati IV, extremely wide neck, 19-1/2 inches in circumference, sleepiness during the day; [place] Sleepiness Scale is 10; obstructive sleep apnea-hypopnea syndrome. 2. Obesity; body mass index 41.4. 3. Hypertension. 4. Diabetes mellitus. 5. Hyperlipidemia. 6. History of sinus problems. 7. History of breast carcinoma on the right and left sides, status post mastectomy, lumpectomy and radiation therapies. 8. Status post tonsillectomy. 9. History of fatty liver. PLAN: 1. Polysomnography for evaluation of patient's breathing during sleep. 2. CPAP/BiPAP titration if sleep study confirms obstructive sleep apnea-hypopnea syndrome. 3. Preferable position during sleep on the side. 4. No driving if patient feels any sleepiness. 5. I will see patient for follow up visit to explain results of testing and following plan. Thank you very much for referring this patient for consultation. Sincerely, Terrance Tan MD, PhD, FAASM Diplomat of [employer] Sleep Medicine Board of [employer] Cemetery Workers Supervisor of [facility] [place] MMODL / IJN: [id number] /
== END ==
LOC: SLEEP 11:14
PROVIDERS: ATTEND Internal Medicine
DX: G47.33 Obstructive sleep apnea (adult) (pediatric) (principal); E66.9 Obesity, unspecified; I10 Essential (primary) hypertension; E11.9 Type 2 diabetes mellitus without complications; E78.5 Hyperlipidemia, unspecified; Z87.09 Personal history of other diseases of the respiratory system; Z85.3 Personal history of malignant neoplasm of breast; Z90.13 Acquired absence of bilateral breasts and nipples; Z92.3 Personal history of irradiation; Z98.890 Other specified postprocedural states; Z90.89 Acquired absence of other organs; Z87.19 Personal history of other diseases of the digestive system; Z68.41 Body mass index [BMI] 40.0-44.9, adult; Z79.84 Long term (current) use of oral hypoglycemic drugs; Z87.891 Personal history of nicotine dependence; Z88.8 Allergy status to other drugs, medicaments and biological substances
CPT/HCPCS: 99211

== ENCOUNTER → 2021-09-27 | Outpatient (CLI) | payer MEDICARE ==
--- NOTE | 2021-09-27 15:21 | SFUN ---
SLEEP CENTER FOLLOW UP NOTE DATE OF SERVICE: 09/27/2021 This 75-year-old lady has been followed in Sleep Center for treatment of obstructive sleep apnea-hypopnea syndrome. The patient recently had a polysomnogram which showed that she has obstructive sleep apnea-hypopnea syndrome. Results of the polysomnogram showed that it was in mild range, but the sleep study was done while the patient was in the chair, and it consequently significantly underestimate the severity of sleep apnea. The patient was started on treatment with AutoPAP, and today is her first visit since she started treatment. [place] Sleepiness Scale is 5. The patient is using her CPAP equipment while she is in a chair. She does not sleep in a bed. She feels better when she using the machine. I checked information from the machine. Usage is 87% of the nights and 80% for more than 4 hours, average 6 hours 47 minutes. AutoPAP is in the range 5 to 15 cm of water, average pressure 7.1 cm of water. Leak is 25.3 L/minute, which is average. Apnea-hypopnea index only 0.1, but again, the patient sleeps in a chair. MEDICATIONS: 1. Atorvastatin 80 mg once a day. 2. Lisinopril 10 mg once a day. 3. Cetirizine 10 mg once a day. 4. Pioglitazone 30 mg once a day. 5. Anastrozole 1 mg once a day. PHYSICAL EXAMINATION: GENERAL: Pleasant patient in no distress. VITAL SIGNS: BP 124/66, HR 80, RR 18, weight 210.8 pounds, temperature 97.1, oxygen saturation at room air 95%. Height 5 feet 3/4 inches. HEENT: PERRLA, EOMI, evaluation of oropharynx showed tongue protrudes midline. Extremely low position of soft palate; Mallampati IV. NECK: Supple, no JVD. Thyroid is not palpable. LUNGS: Clear to percussion and to auscultation. Good air exchange. No wheezing or rhonchi. HEART: S1, S2 regular. No murmurs, gallops, or rubs. ABDOMEN: Obese. EXTREMITIES: No clubbing or cyanosis. PLASTIC PRINTER: Awake, alert, and oriented X3. Cranial nerves 2 to 7 intact. There is no fasciculation or atrophy. noted. No focal deficits observed. IMPRESSION: 1. Obstructive sleep apnea-hypopnea syndrome. The patient demonstrated good compliance with treatment, benefitting from treatment. Normal respiration reading from the CPAP machine, but the patient sleeps in a chair. 2. Obesity. 3. Hypertension. 4. Diabetes mellitus. 5. Hyperlipidemia. 6. History of sinus problems. 7. History of breast carcinoma bilaterally, status post mastectomy, lumpectomy and radiation therapies. 8. Status post tonsillectomy. 9. History of fatty liver. PLAN: 1. I discussed with the patient how to correct the position of the machine, position of the hose, necessity of changing the air filter at least once. 2. The patient will try to sleep in bed with CPAP. Without CPAP, she was not able to do it. I believe that with CPAP she should be able to do it. 3. Patient will continue to use PAP equipment every night for the whole night. 4. Sleep hygiene with regular time in bed for at least 7-1/2 to 8 hours. 5. Precautions related to driving. No driving if feeling sleepiness. 6. I will maintain all necessary prescription for PAP supplies including mask, tube, filters. 7. Watching weight. 8. Follow-up visit in 6 months or earlier if patient has any problems. Thank you very much for allowing me to participate in the management of your patient. Sincerely, Terrance Tan MD, PhD, FAASM Diplomat of [place] [employer] Sleep Medicine Board of [employer] Senior Telecommunications Engineer of [facility] [place] MMBERLIN / DIVYA: [id number] /
== END ==
LOC: SLEEP 13:19
PROVIDERS: ATTEND Internal Medicine
DX: G47.33 Obstructive sleep apnea (adult) (pediatric) (principal); E66.9 Obesity, unspecified; I10 Essential (primary) hypertension; E11.9 Type 2 diabetes mellitus without complications; E78.5 Hyperlipidemia, unspecified; Z99.89 Dependence on other enabling machines and devices; Z87.09 Personal history of other diseases of the respiratory system; Z85.3 Personal history of malignant neoplasm of breast; Z98.890 Other specified postprocedural states; Z90.09 Acquired absence of other part of head and neck; Z87.19 Personal history of other diseases of the digestive system; Z90.13 Acquired absence of bilateral breasts and nipples; Z88.8 Allergy status to other drugs, medicaments and biological substances; Z87.891 Personal history of nicotine dependence

== ENCOUNTER → 2022-02-07 | Outpatient (CLI) | payer MEDICARE ==
--- NOTE | 2022-02-08 18:33 | MM ---
Reason for Exam: Screening (asymptomatic). Last mammogram was performed 1 year(s) and 1 month(s) ago. Patient History: Menarche at age 11. Patient has no children. Postmenopausal. Breast cancer, right, age 71. Breast cancer, left, age 65. Previous chest radiation therapy at age 71. Previous chemotherapy at age 71. Progesterone for 6 months. Mastectomy on the Left side. 12/17/2017, Lumpectomy on the Right side. 06/24/2019, Benign Core Biopsy on the right side. 12/17/2017, Malignant Core Biopsy on the right side. 11/27/2017, Malignant Core Biopsy on the right side. Prior Study Comparison: 06/24/2019 Right Diagnostic Mammogram, [facility]. 01/01/2020 Right Diagnostic Mammogram, [facility]. 01/06/2021 Right Diagnostic Mammogram, [facility]. Tissue Density: Right: There are scattered fibroglandular densities. Findings: Multiple surgical clips and postbiopsy changes are within the left breast. No suspicious groups of microcalcifications, spiculated or lobular masses, architectural distortion or other secondary signs of malignancy are mammographically apparent. Overall Assessment: Benign, BI-RAD 2 Management: Screening Mammogram of the right breast in 1 year. A negative mammogram report should not preclude additional follow up of suspicious palpable abnormalities. Patient should continue monthly self breast exam. A clinical breast exam by your physician is recommended on an annual basis and results should be correlated with mammographic findings. Electronically signed and approved by: Xu Casey D.O. Radiologis
== END | disposition home or self-care (01) ==
LOC: RADMAMWWP 16:47
PROVIDERS: ATTEND Internal Medicine Hematology & Oncology
DX: Z12.31 Encounter for screening mammogram for malignant neoplasm of breast (principal); Z78.0 Asymptomatic menopausal state; Z85.3 Personal history of malignant neoplasm of breast
CPT/HCPCS: 77067

== ENCOUNTER → 2022-04-11 | Outpatient (CLI) | payer MEDICARE ==
--- NOTE | 2022-04-11 14:36 | P.PN ---
Subjective DATE: 04/11/2022 FOLLOW UP VISIT. Patient with obstructive sleep apnea hypopnea syndrome return to sleep center for follow-up visit. Information from previous visit have been reviewed. Patient is using PAP equipment every night for the whole night, getting PAP supplies in time. The patient does not have significant problems with PAP unit and humidification. Patient feels discomfort feel full face mask. [place] sleepiness scale is 8, which is normal. I checked information from PAP unit. PAP unit pressure 5-15, average 9.7 cm H2O. Usage is 80 % and 70% for more then 4 hours, average 5.8 hours per night. Leak is 12.0 l/m, which is in acceptable range. Apnea Hypopnea Index is 0.1, which is perfect. MEDICATIONS:1. Atorvastatin 80 mg once a day 2. Lisinopril 10 mg once a day 3. Cetirizine 10 mg once a day 4. Pioglitazone 35 mg once a day 5. anastrozole 1 mg once a day 6. Ibuprofen 800 mg as needed During physical exam: GENERAL: A pleasant patient without any distress. VITAL SIGNS: BP 145/78, HR 72, RR 22, weight 216.0, temperature 95.7, oxygen saturation at room air 93 % . HEENT: PERRLA, EOMI.low position of soft palate, Mallapati 4 . NECK: Supple. No JVD. LUNGS: Clear to percussion and to auscultation. Good air exchange. No wheezing or rhonchi. HEART: S1, S2 regular. ABDOMEN: Soft and nontender.[] EXTREMITIES: No clubbing or cyanosis. BREAKER UP: Awake, alert, and oriented x3. No focal deficit. Impressions: 1. Obstructive sleep apnea-hypopnea syndrome. Patient demonstrated great compliance with treatment, benefiting from treatment. 2. Hypertension. 3. Diabetes mellitus. 4. Hyperlipidemia. 5. Obesity. 6. History of sinuses problems. 7. History of breast carcinoma bilaterally, status post mastectomy, lumpectomy and radiation therapy. 8. Status post tonsillectomy. 9. History of fatty liver. Plan: 1. Continue using PAP equipment every night for the whole night. Prescription for Airfit P-10 nasal pillow mask for trial with nasal strips and chinstrap if necessary. 2. To change air filter at least 1-2 times per month. 3. PAP unit should stay lower then position of the head. 4. Advised patient to remove all remaining water from humidifier canister daily and make it dry after each usage. Refill canister with fresh distilled water before each usage. 5. Sleep hygiene with regular time in bed for at least 8 hours. 6. Precautions related to driving. No driving if feel any sleepiness. 7. I will maintain prescription for PAP supplies including mask, tube, filters. 8. Follow up visit in 6 months or earlier if patient has any problems. 9. Watching weight. Thank you very much for allowing me to participate in the management of your patient. Terrance Tan MD, PhD, FAASM. Diplomat of [place] [employer], Sleep Medicine Board by [place] [employer] Battery Test Engineer of [facility] [place]
== END ==
LOC: SLEEP 13:55
PROVIDERS: ATTEND Internal Medicine
DX: G47.33 Obstructive sleep apnea (adult) (pediatric) (principal); I10 Essential (primary) hypertension; E11.9 Type 2 diabetes mellitus without complications; E78.5 Hyperlipidemia, unspecified; Z99.89 Dependence on other enabling machines and devices; E66.9 Obesity, unspecified; Z87.09 Personal history of other diseases of the respiratory system; Z90.13 Acquired absence of bilateral breasts and nipples; Z92.3 Personal history of irradiation; Z90.89 Acquired absence of other organs; K76.0 Fatty (change of) liver, not elsewhere classified; Z88.8 Allergy status to other drugs, medicaments and biological substances; Z87.891 Personal history of nicotine dependence; Z79.899 Other long term (current) drug therapy; Z79.84 Long term (current) use of oral hypoglycemic drugs
CPT/HCPCS: 99212

== ENCOUNTER → 2022-12-17 | Outpatient (CLI) | payer MEDICARE ==
--- NOTE | 2022-12-18 11:15 | CA ---
Transthoracic Echo Report Name: Pamela Barrera Age: 76 Gender: F : 1945 Exam Date: 12/17/2022 09:22 Exam Location: [facility] Ht (in): 61 Wt (lb): 220 Ordering Physician: Miguel Angel Plascencia MD Attending/Referring Phys: Thais JOHNSON [place] Justa Felix RDCS Procedure CPT: Indications: R01.1 CARDIAC MURMUR, UNSPECIFIED Cardiac Hx: Technical Quality: Fair Contrast 1: Total Dose (mL): Contrast 2: Total Dose (mL): MEASUREMENTS (Male / Female) Normal Values 2D ECHO LV Diastolic Diameter PLAX 4.6 cm 4.2 - 5.9 / 3.9 - 5.3 cm LV Systolic Diameter PLAX 3.3 cm IVS Diastolic Thickness 1.5 cm 0.6 - 1.0 / 0.6 - 0.9 cm LVPW Diastolic Thickness 1.1 cm 0.6 - 1.0 / 0.6 - 0.9 cm LV Relative Wall Thickness 0.6 RV Internal Dim ED PLAX 3.9 cm LA Volume 55.4 cm??? 18 - 58 / 22 - 52 cm??? M-MODE Aortic Root Diameter MM 2.7 cm LA Systolic Diameter MM 5.2 cm LA Ao Ratio MM 1.9 AV Cusp Separation MM 1.6 cm DOPPLER AV Peak Velocity 199.7 cm/s AV Peak Gradient 16.0 mmHg AV Mean Velocity 123.3 cm/s AV Mean Gradient 7.1 mmHg AV Velocity Time Integral 42.7 cm LVOT Peak Velocity 144.4 cm/s LVOT Peak Gradient 8.3 mmHg LVOT Velocity Time Integral 33.9 cm MV Area PHT 3.5 cm??? Mitral E Point Velocity 103.0 cm/s Mitral A Point Velocity 122.0 cm/s Mitral E to A Ratio 0.8 MV Deceleration Time 214.3 ms MV E' Velocity 8.1 cm/s Mitral E to MV E' Ratio 12.8 TR Peak Velocity 198.2 cm/s TR Peak Gradient 15.7 mmHg Right Ventricular Systolic Press 19.6 mmHg FINDINGS Left Ventricle Moderately increased left ventricular wall thickness. Left ventricular cavity size normal. Normal left ventricular systolic function with no obvious regional wall motion abnormalities. Left ventricular ejection fraction is estimated at 55-60 %. Right Ventricle Right ventricular dilatation. Right ventricular systolic pressure within normal limits. Right Atrium Normal right atrial size. Left Atrium Normal left atrial size. Mitral Valve Structurally normal mitral valve. Mild mitral annular calcification. Trace to mild mitral regurgitation. Aortic Valve No aortic valve stenosis or regurgitation. Aortic valve sclerosis. Tricuspid Valve Structurally normal tricuspid valve. Mild tricuspid regurgitation. Pulmonic Valve Trace pulmonic regurgitation. Pericardium No pericardial effusion. Echo free space anterior to the right ventricle likely represents a fat pad. Aorta Normal size aortic root and proximal ascending aorta. CONCLUSIONS Normal LV size and systolic function. There is mild mitral and the calcification. Mild mitral and tricuspid regurgitation. No pericardial effusion. Possible fat pad anteriorly. No pulmonary hypertension Previewed by: Dr. Jersey Turner MD (Electronically Signed) Final Date: 18 December 2022 11:14
== END | disposition home or self-care (01) ==
LOC: RADECHMAIN 09:10
PROVIDERS: ATTEND Family Medicine
DX: I08.1 Rheumatic disorders of both mitral and tricuspid valves (principal); R01.1 Cardiac murmur, unspecified
CPT/HCPCS: 93306

== ENCOUNTER → 2023-02-21 | Outpatient (CLI) | payer MEDICARE ==
--- NOTE | 2023-02-21 18:16 | P.PN ---
Subjective DATE: 02/21/2023 FOLLOW UP VISIT. Patient with obstructive sleep apnea hypopnea syndrome return to sleep center for follow-up visit. Information from previous visit have been reviewed. Patient is using PAP equipment every night for the whole night, getting PAP supplies in time. The patient does not have significant problems with the mask, PAP unit and humidification. [place] sleepiness scale is 7, which is normal. I checked information from PAP unit. PAP unit pressure 5-15, average 9.4 cm H2O. Usage is 90 % for more then 4 hours, average 5.5 hours per night. Leak is to 12 l/m, which is in acceptable range. Apnea Hypopnea Index is 0.1, which is perfect. MEDICATIONS:1. Pioglitazone 35 mg once a day 2. Cetirizine 10 mg once a day 3. Cyclobenzaprene 10 mg once a day During physical exam: GENERAL: A pleasant patient without any distress. VITAL SIGNS: BP 145/ 80, HR 77, RR 18, weight 223.6, temperature 97.2, oxygen saturation at room air 93 % . HEENT: PERRLA, EOMI.low position of soft palate, Mallapati 4 . NECK: Supple. No JVD. LUNGS: Clear to percussion and to auscultation. Good air exchange. No wheezing or rhonchi. HEART: S1, S2 regular. ABDOMEN: Soft and nontender. Obese EXTREMITIES: No clubbing or cyanosis. RN REHAB: Awake, alert, and oriented x3. No focal deficit. Impressions: 1. Obstructive sleep apnea-hypopnea syndrome. Patient demonstrated good compliance with treatment, benefiting from treatment. 2. Obesity. 3. Hypertension. 4. Diabetes mellitus. 5. Hyperlipidemia. 6. History of sinuses problems. 7. History of breast carcinoma bilaterally, status post lumpectomy, mastectomy and radiation therapy. 8. History of fatty liver. 9. Status post tonsillectomy. Plan: 1. Continue using PAP equipment every night for the whole night. 2. To change air filter at least 1-2 times per month. 3. PAP unit should stay lower then position of the head. 4. Advised patient to remove all remaining water from humidifier canister daily and make it dry after each usage. Refill canister with fresh distilled water before each usage. 5. Sleep hygiene with regular time in bed for at least 8 hours. 6. Precautions related to driving. No driving if feel any sleepiness. 7. I will maintain prescription for PAP supplies including mask, tube, filters. 8. Watching and losing weight. 9. Follow up visit in 6 months or earlier if patient has any problems. Thank you very much for allowing me to participate in the management of your patient. Terrance Tan MD, PhD, FAASM. Diplomat of [place] [employer], Sleep Medicine Board by [place] [facility] [place]
== END ==
LOC: 3 N SLEEP 16:19
PROVIDERS: ATTEND Internal Medicine
DX: G47.33 Obstructive sleep apnea (adult) (pediatric) (principal); E11.9 Type 2 diabetes mellitus without complications; E66.9 Obesity, unspecified; E78.5 Hyperlipidemia, unspecified; I10 Essential (primary) hypertension; K76.0 Fatty (change of) liver, not elsewhere classified; Z79.84 Long term (current) use of oral hypoglycemic drugs; Z85.3 Personal history of malignant neoplasm of breast; Z90.13 Acquired absence of bilateral breasts and nipples; Z98.890 Other specified postprocedural states; Z90.89 Acquired absence of other organs; Z99.89 Dependence on other enabling machines and devices; Z88.8 Allergy status to other drugs, medicaments and biological substances; Z79.899 Other long term (current) drug therapy; Z87.891 Personal history of nicotine dependence
CPT/HCPCS: 99212

== ENCOUNTER → 2023-06-18 | Outpatient (CLI) | payer MEDICARE ==
--- NOTE | 2023-06-18 14:05 | BD ---
EXAMINATION TYPE: Axial Bone Density DATE OF EXAM: 06/18/2023 CLINICAL HISTORY: 77 years old Female. ICD-10 CODE: C50.211 breast ca Height: 4 ft 11 in Weight: 223 FRAX RISK QUESTIONS: Alcohol (3 or more units per day): no Family History (Parent hip fracture): no Glucocorticoids (More than 3mos): no (Ex: prednisone, prednisolone, methylprednisolone, dexamethasone, and hydrocortisone). History of Fracture in Adulthood: no Secondary Osteoporosis: 1. Type 1 Diabetes: no 2. Hyperthyroidism: no 3. Menopause before 45: no 4. Malnutrition: no 5. Chronic liver disease: no Rheumatoid Arthritis: no Current Tobacco Use: no RISK FACTORS HISTORY OF: Surgery to Spine/Hip(right/left)/Wrist (right/left): no MEDICATIONS: Thyroid Medications: none Osteoporosis Medications: none EXAM MEASUREMENTS: Bone mineral densitometry was performed using the [facility]. Bone mineral density as measured about the Lumbar spine is: ----- L1-L4(G/cm2): 1.167 T Score Values are as follows: ----- L1: -0.4 ----- L2: -0.6 ----- L3: 0.3 ----- L4: 0.0 ----- L1-L4: -0.1 Z Score Values are as follows: ----- L1: 0.3 ----- L2: 0.0 ----- L3: 0.9 ----- L4: 0.7 ----- L1-L4: 0.5 Bone mineral density has: increased 3.4 % since study of: 2021 Bone mineral density about the R hip (g/cm2): 0.895 Bone mineral density about the L hip (g/cm2): 0.915 T Score values are as follows: -----R Neck: -1.0 -----L Neck: -0.9 -----R Total: -0.2 -----L Total: -0.6 Z Score values are as follows: -----R Neck: 0.3 -----L Neck: 0.5 -----R Total: 1.0 -----L Total: 0.5 Bone mineral density has: decreased -4.3 % since study of: 2021 FRAX%s: The graph provided illustrates a 9.7 % chance for a major osteoporotic fx and a 1.7 % chance for the hips probability for fx in 10 years time. IMPRESSION: Normal (Values between +1 and -1 indicate normal bone mass). Consider repeating this study in 5 year s or sooner if there is some new clinical indication. NOTE: T-SCORE=SD OF THE YOUNG ADULT MEAN.
== END | disposition home or self-care (01) ==
LOC: RADBDWWP 12:41
PROVIDERS: ATTEND Internal Medicine Hematology & Oncology
DX: C50.211 Malignant neoplasm of upper-inner quadrant of right female breast (principal); I10 Essential (primary) hypertension; G47.00 Insomnia, unspecified; C64.2 Malignant neoplasm of left kidney, except renal pelvis; G89.0 Central pain syndrome; G89.3 Neoplasm related pain (acute) (chronic); R91.1 Solitary pulmonary nodule; Z71.3 Dietary counseling and surveillance; Z79.890 Hormone replacement therapy
CPT/HCPCS: 77080

== ENCOUNTER 2023-06-20 07:04 | Day surgery (SDC) | payer MEDICARE ==
--- NOTE | 2023-06-20 07:31 | P.GSHP ---
History of Present Illness H&P Date: 06/20/23 CHIEF COMPLAINT: Colon screen HISTORY OF PRESENT ILLNESS: The patient is a 77-year-old female who presents for colon screen. Lower endoscopy was offered for further evaluation and management. PAST MEDICAL HISTORY: Please see list. PAST SURGICAL HISTORY: Please see list. MEDICATIONS: Please see list. ALLERGIES: Please see list. SOCIAL HISTORY: No illicit drug use FAMILY HISTORY: No reports of Crohn disease or ulcerative colitis. REVIEW OF ORGAN SYSTEMS: CONSTITUTIONAL: No reports of fevers or chills. PHYSICAL EXAM: VITAL SIGNS: Stable GENERAL: Well-developed pleasant in no acute distress. HEENT: No scleral icterus. Extraocular movements grossly intact. Moist buccal mucosa. NECK: Supple without lymphadenopathy. CHEST: Unlabored respirations. Equal bilateral excursions. CARDIOVASCULAR: Regular rate and rhythm. Distal 2+ pulses. ABDOMEN: Soft, nontender, nondistended. MUSCULOSKELETAL: No clubbing, cyanosis, or edema. ASSESSMENT: 1. Colon screen. PLAN: 1. Recommend proceeding with a lower endoscopy Past Medical History Past Medical History: Cancer, Diabetes Mellitus, Hyperlipidemia, Hypertension, Osteoarthritis (OA), Sleep Apnea/CPAP/BIPAP Additional Past Medical History / Comment(s): IRON INJECTIONS CHILD, BACK PAIN, HX OF BILATERAL BREAST CANCER WITH MASTECTOMY, LUMPECTOMY, CHEMO (LAST TX JUN 2018) AND RADIATION (LAST TX JULY 2018). lymphedema lower legs, (wears compression socks) History of Any Multi-Drug Resistant Organisms: None Reported Past Surgical History: Breast Surgery, Tonsillectomy Additional Past Surgical History / Comment(s): edison mastectomy, right breast lumpectomy, breast biopsy. Past Anesthesia/Blood Transfusion Reactions: No Reported Reaction Smoking Status: Former smoker - Past Family History Mother Family Medical History: CVA/TIA Additional Family Medical History / Comment(s): CVA Sister(s) Family Medical History: Cancer Additional Family Medical History / Comment(s): UTERINE SARCOMA. Father Family Medical History: Unable to Obtain Additional Family Medical History / Comment(s): Patient never knew her Father. Medications and Allergies Home Medications Medication Instructions Recorded Confirmed Type Atorvastatin [Lipitor] 80 mg PO DAILY 11/22/17 06/18/23 History Cetirizine HCl 10 mg PO HS 11/22/17 06/18/23 History Cholecalciferol (Vitamin D3) 2,000 unit PO DAILY 11/22/17 06/18/23 History [Vitamin D3] Ibuprofen [Motrin] 800 mg PO DAILY PRN 11/22/17 06/18/23 History Acetaminophen [Tylenol Extra 500 mg PO DIRECTED PRN 12/09/17 06/18/23 History Strength] Pioglitazone HCl [Actos] 30 mg PO DAILY 12/09/17 06/18/23 History Anastrozole [Arimidex] 1 mg PO DAILY 03/10/19 06/18/23 History Magnesium 250 mg PO DAILY 06/18/23 06/18/23 History Potassium Chloride 10 meq PO DAILY 06/18/23 06/18/23 History Valsartan 80 mg PO DAILY 06/18/23 06/18/23 History Vit B Complex(Unk) 1 tab PO DAILY 06/18/23 06/18/23 History Allergies Allergy/AdvReac Type Severity Reaction Status Date / Time lisinopril Allergy Cough Verified 06/18/23 09:52 metformin Allergy Diarrhea Verified 06/18/23 09:52
[2023-06-20] MEDS: LACTATED RINGERS 1,000 ML IV SCH (07:43)
[2023-06-20] MEDS: LIDOCAINE 1% (10MG/ML) FOR IV START INTRADERMA PRN (07:43)
[2023-06-20 07:45] LABS: Glucose,Whole Blood 117 mg/dL (70-110)
[2023-06-20] MEDS ORDERED: PROPOFOL 10 MG/ML 20 ML VIAL IV ONE (07:47)
[2023-06-20 07:49] VITALS: TEMP 97.3
--- NOTE | 2023-06-20 08:19 | P.PCN ---
Date of Procedure: 06/20/23 Description of Procedure: PREOPERATIVE DIAGNOSIS: Abnormal stool tests, Cologuard. Colonoscopy screening Morbid obesity excess calories, BMI 43.4 POSTOPERATIVE DIAGNOSIS: Colonoscopy screening. Pandiverticulosis OPERATION: Colonoscopy to the cecum, ileocecal valve and appendiceal orifice. SURGEON: Blanca Murray MD. ANESTHESIA: MAC. INDICATIONS: The patient is a 77-year-old female who presents with history of abnormal stool test. She presents for colonoscopy screening. Benefits and risks were described and informed consent was obtained. DESCRIPTION OF PROCEDURE: The patient had undergone SuFLAVE prep. The patient had been brought into the operating room and laid in the left lateral decubitus position. After adequate intravenous sedation, the rectum was examined with 2% lidocaine jelly. No external hemorrhoids were encountered. The rectal tone was within normal limits. No lesions were palpated in the rectal vault. An Olympus colonoscope was advanced until the cecum, ileocecal valve and appendiceal orifice were clearly viewed. The prep was excellent. Scattered diverticulosis was encountered. No colonic polyps were found. No evidence of focal colitis was found. Retroflexion of the scope demonstrated grade 1 internal hemorrhoids without active bleeding or inflammation. The colon was desufflated. The patient had tolerated the procedure well. Withdrawal time was over 6 minutes. FINDINGS: [place] preparation quality scale 1 (1-5) Internal hemorrhoids, grade 1 No external prolapsed hemorrhoids. No arteriovenous malformations. No adenomatous polyps. No focal colitis. Pandiverticulosis RECOMMENDATIONS: Lower endoscopy in 5 years, 2028 Plan - Discharge Summary Discharge Rx Participant: No New Discharge Prescriptions: No Action Cetirizine HCl 10 mg PO HS Atorvastatin [Lipitor] 80 mg PO DAILY Ibuprofen [Motrin] 800 mg PO DAILY PRN PRN Reason: Pain Cholecalciferol (Vitamin D3) [Vitamin D3] 2,000 unit PO DAILY Pioglitazone HCl [Actos] 30 mg PO DAILY Acetaminophen [Tylenol Extra Strength] 500 mg PO DIRECTED PRN PRN Reason: Pain Anastrozole [Arimidex] 1 mg PO DAILY Vit B Complex(Unk) 1 tab PO DAILY Valsartan 80 mg PO DAILY Potassium Chloride 10 meq PO DAILY Magnesium 250 mg PO DAILY Discharge Medication List Atorvastatin [Lipitor] 80 mg PO DAILY 11/22/17 [History] Cetirizine HCl 10 mg PO HS 11/22/17 [History] Cholecalciferol (Vitamin D3) [Vitamin D3] 2,000 unit PO DAILY 11/22/17 [History] Ibuprofen [Motrin] 800 mg PO DAILY PRN 11/22/17 [History] Acetaminophen [Tylenol Extra Strength] 500 mg PO DIRECTED PRN 12/09/17 [History] Pioglitazone HCl [Actos] 30 mg PO DAILY 12/09/17 [History] Anastrozole [Arimidex] 1 mg PO DAILY 03/10/19 [History] Magnesium 250 mg PO DAILY 06/18/23 [History] Potassium Chloride 10 meq PO DAILY 06/18/23 [History] Valsartan 80 mg PO DAILY 06/18/23 [History] Vit B Complex(Unk) 1 tab PO DAILY 06/18/23 [History]
[2023-06-20 08:55] VITALS: BP 135/61; PULSE 78; RESP 18
== END 2023-06-20 08:58 | disposition home or self-care (01) ==
LOC: ORWHC2ENDO 07:04
PROVIDERS: ATTEND Surgery Plastic and Reconstructive Surgery
DX: K64.0 First degree hemorrhoids (principal); K57.30 Diverticulosis of large intestine without perforation or abscess without bleeding; I10 Essential (primary) hypertension; E78.5 Hyperlipidemia, unspecified; G47.33 Obstructive sleep apnea (adult) (pediatric); E11.9 Type 2 diabetes mellitus without complications; E66.01 Morbid (severe) obesity due to excess calories; Z68.41 Body mass index [BMI] 40.0-44.9, adult; Z79.84 Long term (current) use of oral hypoglycemic drugs; Z79.811 Long term (current) use of aromatase inhibitors; Z79.899 Other long term (current) drug therapy; Z90.11 Acquired absence of right breast and nipple; Z87.891 Personal history of nicotine dependence; Z88.8 Allergy status to other drugs, medicaments and biological substances
CPT/HCPCS: 45378; J2704

== ENCOUNTER → 2023-09-02 | Outpatient (CLI) | payer MEDICARE ==
--- NOTE | 2023-09-03 09:04 | XR ---
EXAMINATION TYPE: XR knee 4V LT DATE OF EXAM: 09/02/2023 CLINICAL HISTORY: pain TECHNIQUE: Three views of the left knee are obtained. [place] patellar view also obtained. COMPARISON: None. FINDINGS: There is no acute fracture/dislocation. The tri-compartment joint spaces appear within no rmal limits. The overlying soft tissue appears unremarkable. IMPRESSION: There is no acute fracture or dislocation ICD 10 NO FRACTURE, INITIAL EVALUATION
== END | disposition home or self-care (01) ==
LOC: RADXRMAIN 15:28
PROVIDERS: ATTEND Family Medicine
DX: M25.562 Pain in left knee (principal)

== ENCOUNTER → 2023-09-05 | Outpatient (CLI) | payer MEDICARE ==
[2023-09-05 19:05] LABS: Basophils # (A) 0.03 X 10*3/uL (0.00-0.10); Basophils % (A) 0.3 %; Eosinophils # (A) 0.25 X 10*3/uL (0.04-0.35); Eosinophils % (A) 2.6 %; HCT 39.3 % (37.2-46.3); HGB 12.6 g/dL (12.0-15.0); Lymphocytes % (A) 20.1 %; MCH 31.7 pg (27.0-32.0); MCHC 32.1 g/dL (32.0-37.0); MCV 98.7 FL (80.0-97.0); Mean Platelet Volume 10.3 FL (9.5-12.2); Monocytes % (A) 6.4 %; NRBC Per 100 WBC 0 X 10*3/uL (0.00-0.01); Neutrophils # (A) 6.62 X 10*3/uL (1.80-7.70); Neutrophils % (A) 70.2 %; Platelet Count 300 X 10*3/uL (140-440); RBC 3.98 X 10*6/uL (4.10-5.20); RDW 12.9 % (11.5-14.5); WBC 9.44 X 10*3/uL (4.50-10.00)
[2023-09-05 19:18] LABS: Albumin 4.1 g/dL (3.8-4.9); Blood Urea Nitrogen 13.6 mg/dL (9.0-27.0); Calcium 9.4 mg/dL (8.7-10.3); Carbon Dioxide 23.2 mmol/L (21.6-31.8); Chloride 107 mmol/L (96-109); Chol/HDL Ratio 3.46 Ratio; Globulin 2.5 g/dL (1.6-3.3); Glucose 114 mg/dL (70-110); LDL Cholesterol,Calculated 94.2 mg/dL (0.0-131.0); Sodium 143 mmol/L (135-145); Total Protein 6.6 g/dL (6.2-8.2)
[2023-09-05 19:19] LABS: ALT 18 U/L (8-44); AST 14 U/L (13-35); Albumin/Globulin Ratio 1.64 Ratio (1.60-3.17); Alkaline Phosphatase 84 U/L (41-126); Bilirubin, Conjugated <0.20 mg/dL (0.20-0.40); Bilirubin,Unconjugated >0.20 mg/dL (0.20-1.00); Total Bilirubin 0.4 mg/dL (0.3-1.2)
== END | disposition home or self-care (01) ==
LOC: LABWHC1 13:22
PROVIDERS: ATTEND Nurse Practitioner Family
DX: I10 Essential (primary) hypertension (principal)
CPT/HCPCS: 36415; 80048; 80061; 80076; 85025

== ENCOUNTER → 2023-11-20 | Outpatient (CLI) | payer MEDICARE ==
[2023-11-20 15:40] VITALS: BP 131/71; PULSE 82; RESP 20; TEMP 97.8
--- NOTE | 2023-11-20 16:19 | P.PROGSL ---
Subjective DATE: 11/20/2023 FOLLOW UP VISIT. Patient with obstructive sleep apnea hypopnea syndrome return to sleep center for follow-up visit. Information from previous visit have been reviewed. Patient is using PAP equipment every night for the whole night, getting PAP supplies in time. The patient does not have significant problems with the mask, PAP unit and humidification. [place] sleepiness scale is 4, which is normal. I checked information from PAP unit. PAP unit pressure 5-15, average 8.1 cm H2O. Usage is 90% for more then 4 hours, average 6.25 hours per night. Leak is 17.8 l/m, which is in acceptable range. Apnea Hypopnea Index is 0.1, which is normal. MEDICATIONS: Please see below During physical exam: GENERAL: A pleasant patient without any distress. VITAL SIGNS: Please see below, weight 218 pounds, BMI 43.4. HEENT: PERRLA, EOMI.low position of soft palate, Mallapati 4 . NECK: Supple. No JVD. LUNGS: Clear to percussion and to auscultation. Good air exchange. No wheezing or rhonchi. HEART: S1, S2 regular. ABDOMEN: Soft and nontender. Obese EXTREMITIES: No clubbing or cyanosis. PIPING DESIGN SPECIALIST: Awake, alert, and oriented x3. No focal deficit. Impressions: 1. Obstructive sleep apnea-hypopnea syndrome. Patient demonstrated great compliance with treatment, benefiting from treatment. 2. Obesity, BMI 43.4. 3. Hypertension. 4. Diabetes mellitus. 5. Hyperlipidemia. 6. History of sinuses problems. 7. History of bilateral breast cancer, treated by lumpectomy, mastectomy and radiation therapy. 8. History of fatty liver. 9. Status post tonsillectomy. Plan: 1. Continue using PAP equipment every night for the whole night. 2. To change air filter at least 1-2 times per month. 3. PAP unit should stay lower then position of the head. 4. Advised patient to remove all remaining water from humidifier canister daily and make it dry after each usage. Refill canister with fresh distilled water before each usage. 5. Sleep hygiene with regular time in bed for at least 8 hours. 6. Precautions related to driving. No driving if feel any sleepiness. 7. I will maintain prescription for PAP supplies including mask, tube, filters. 8. Follow up visit in 6 months or earlier if patient has any problems. 9. Watching and losing weight. Thank you very much for allowing me to participate in the management of your patient. Terrance Tan MD, PhD, FAASM. Diplomat of [place] [employer], Sleep Medicine Board by [place] [employer] [facility] [place] Objective - Vital Signs Vital Signs: Vital Signs Temp 97.8 F 11/20/23 15:39 Pulse 82 11/20/23 15:39 Resp 20 11/20/23 15:39 BP 131/71 11/20/23 15:39 Pulse Ox 96 11/20/23 15:39 FiO2 Intake & Output 11/19/23 11/20/23 11/20/23 18:59 06:59 18:59 Weight 98.883 kg Home Medications: Home Medications Medication Instructions Recorded Confirmed Type Atorvastatin [Lipitor] 80 mg PO DAILY 11/22/17 11/20/23 History Cetirizine HCl 10 mg PO HS 11/22/17 11/20/23 History Cholecalciferol (Vitamin D3) 2,000 unit PO DAILY 11/22/17 11/20/23 History [Vitamin D3] Ibuprofen [Motrin] 800 mg PO DAILY PRN 11/22/17 11/20/23 History Acetaminophen [Tylenol Extra 500 mg PO DIRECTED PRN 12/09/17 11/20/23 History Strength] Pioglitazone HCl [Actos] 30 mg PO DAILY 12/09/17 11/20/23 History Anastrozole [Arimidex] 1 mg PO DAILY 03/10/19 11/20/23 History Magnesium 250 mg PO DAILY 06/18/23 11/20/23 History Potassium Chloride 10 meq PO DAILY 06/18/23 11/20/23 History Valsartan 80 mg PO DAILY 06/18/23 11/20/23 History Vit B Complex(Unk) 1 tab PO DAILY 06/18/23 11/20/23 History Melatonin 10 mg PO HS 11/20/23 11/20/23 History
== END ==
LOC: 3 N SLEEP 15:14
PROVIDERS: ATTEND Internal Medicine
DX: G47.33 Obstructive sleep apnea (adult) (pediatric) (principal); E66.9 Obesity, unspecified; I10 Essential (primary) hypertension; E11.9 Type 2 diabetes mellitus without complications; E78.5 Hyperlipidemia, unspecified; Z99.89 Dependence on other enabling machines and devices; Z68.41 Body mass index [BMI] 40.0-44.9, adult; Z85.3 Personal history of malignant neoplasm of breast; Z87.09 Personal history of other diseases of the respiratory system; Z98.890 Other specified postprocedural states; Z90.13 Acquired absence of bilateral breasts and nipples; Z90.89 Acquired absence of other organs; Z87.19 Personal history of other diseases of the digestive system; Z92.3 Personal history of irradiation; Z88.8 Allergy status to other drugs, medicaments and biological substances; Z79.899 Other long term (current) drug therapy; Z87.891 Personal history of nicotine dependence
CPT/HCPCS: 99212

== ENCOUNTER → 2023-12-17 | Outpatient (CLI) | payer MEDICARE | END | disposition home or self-care (01) | LOC: LABPRL 10:30 | PROVIDERS: ATTEND Family Medicine | DX: E11.9 Type 2 diabetes mellitus without complications (principal) | CPT/HCPCS: 82043; 82570 ==

== ENCOUNTER → 2024-02-25 | Outpatient (CLI) | payer MEDICARE ==
--- NOTE | 2024-02-26 12:43 | MM ---
Reason for Exam: Screening (asymptomatic). Last mammogram was performed 1 year(s) and 1 month(s) ago. Patient History: Menarche at age 11. Patient has no children. Postmenopausal. Breast cancer, right, age 71. Breast cancer, left, age 65. Previous chest radiation therapy at age 71. Previous chemotherapy at age 71. Progesterone for 6 months. Mastectomy on the Left side. 12/17/2017, Lumpectomy on the Right side. 06/24/2019, Benign Core Biopsy on the right side. 12/17/2017, Malignant Core Biopsy on the right side. 11/27/2017, Malignant Core Biopsy on the right side. Prior Study Comparison: 01/06/2021 Right Diagnostic Mammogram, [facility]. 02/07/2022 Right MG 3D scr gibran unilateral w/cad., [facility]. 02/08/2023 Right MG 3D scr gibran unilateral w/cad., [facility]. Tissue Density: Right: There are scattered areas of fibroglandular density. Findings: Right breast biopsy clip. Right breast: There is no suspicious group of microcalcifications or new suspicious mass. Benign-appearing calcifications right breast. Overall Assessment: Benign, BI-RAD 2 Management: Screening Mammogram of the left breast in [address] [facility] will attempt to contact patient to return for supplemental views and ultrasound if indicated. Patient should continue monthly self-breast exams. A clinical breast exam by your physician is recommended on an annual basis. This exam should not preclude additional follow-up of suspicious palpable abnormalities. Note on Joyce scores and lifetime risk: 1. A Joyce score greater than 3% is considered moderate risk. If this is the case, consider specialist referral to assess eligibility for a risk reducing agent. 2. If overall lifetime risk for the development of breast cancer is 20% or higher, the patient may qualify for future screening with alternating mammogram and breast MRI. [facility], , 02/26/2024 12:40 PM. Electronically signed and approved by: Farzad Jeff DO
== END | disposition home or self-care (01) ==
LOC: RADMAMWWP 14:59
PROVIDERS: ATTEND Internal Medicine Hematology & Oncology
CPT/HCPCS: 77067

== ENCOUNTER → 2024-08-26 | Outpatient (CLI) | payer MEDICARE ==
[2024-08-26 11:18] VITALS: BP 132/71; PULSE 76; RESP 20; TEMP 97.4
--- NOTE | 2024-08-26 11:40 | P.PROGSL ---
Subjective DATE: 08/26/2024 FOLLOW UP VISIT. Patient with obstructive sleep apnea hypopnea syndrome return to sleep center for follow-up visit. Information from previous visit have been reviewed. Patient is using PAP equipment every night for the whole night, getting PAP supplies in time. Sometimes patient has dryness in the nose. [place] sleepiness scale is 4, which is normal. I checked information from PAP unit. PAP unit pressure 5-15, average 5.9 cm H2O. Usage is 70% for more then 4 hours, average 4.25 hours per night. Leak is in increased to 58.4 l/m. Apnea Hypopnea Index is 0.1, which is normal. MEDICATIONS have been reviewed, please see below. During physical exam: GENERAL: A pleasant patient without any distress. VITAL SIGNS: Please see below, weight is 203.4 lbs. HEENT: PERRLA, EOMI.low position of soft palate, Mallapati 4 . NECK: Supple. No JVD. LUNGS: Clear to percussion and to auscultation. Good air exchange. No wheezing or rhonchi. HEART: S1, S2 regular. ABDOMEN: Soft and nontender. Slightly obese EXTREMITIES: No clubbing or cyanosis. BOWL TURNER: Awake, alert, and oriented x3. No focal deficit. Impressions: 1. Obstructive sleep apnea-hypopnea syndrome. Patient demonstrated great compliance with treatment, benefiting from treatment. 2. Obesity, BMI 40.3, patient lost 14 pounds since previous visit. 3. Hypertension. 4. Diabetes mellitus. 5. Hyperlipidemia. 6. History of sinus problems. 7. History of bilateral breast cancer treated by lumpectomy, mastectomy and radiation therapy. 8. History of fatty liver. 9. Status post tonsillectomy. Plan: 1. Continue using PAP equipment every night for the whole night. 2. Sleep hygiene with regular time in bed for at least 7.5-8 hours 3. PAP unit should stay lower then position of the head. 4. Advised patient to remove all remaining water from humidifier canister daily and make it dry after each usage. Refill canister with fresh distilled water before each usage. 5. Watching and losing weight. 6. Precautions related to driving. No driving if feel any sleepiness. 7. I will maintain prescription for PAP supplies including mask, tube, filters. 8. Follow up visit in 8 months or earlier if patient has any problems. Thank you very much for allowing me to participate in the management of your patient. Terrance Tan MD, PhD, FAASM. Diplomat of [place] [employer], Sleep Medicine Board by [place] [employer] [facility] [place] Objective - Vital Signs Vital Signs: Vital Signs Temp 97.4 F L 08/26/24 11:15 Pulse 76 08/26/24 11:15 Resp 20 08/26/24 11:15 BP 132/71 08/26/24 11:15 Pulse Ox 98 08/26/24 11:15 FiO2 Intake & Output 08/25/24 08/26/24 08/26/24 18:59 06:59 18:59 Weight 92.193 kg Home Medications: Home Medications Medication Instructions Recorded Confirmed Type Atorvastatin [Lipitor] 80 mg PO DAILY 11/22/17 08/26/24 History Cetirizine HCl 10 mg PO HS 11/22/17 11/20/23 History Cholecalciferol (Vitamin D3) 2,000 unit PO DAILY 11/22/17 11/20/23 History [Vitamin D3] Ibuprofen [Motrin] 800 mg PO DAILY PRN 11/22/17 08/26/24 History Acetaminophen [Tylenol Extra 500 mg PO DIRECTED PRN 12/09/17 11/20/23 History Strength] Pioglitazone HCl [Actos] 30 mg PO DAILY 12/09/17 11/20/23 History Anastrozole [Arimidex] 1 mg PO DAILY 03/10/19 08/26/24 History Magnesium 250 mg PO DAILY 06/18/23 11/20/23 History Potassium Chloride 10 meq PO DAILY 06/18/23 11/20/23 History Valsartan 80 mg PO DAILY 06/18/23 08/26/24 History Vit B Complex(Unk) 1 tab PO DAILY 06/18/23 11/20/23 History Melatonin 10 mg PO HS 11/20/23 11/20/23 History Semaglutide [Ozempic] 0.5 mg SQ WEEKLY 08/26/24 08/26/24 History Tolterodine Tartrate [Tolterodine 4 mg PO DAILY 08/26/24 08/26/24 History Tartrate ER]
== END ==
LOC: 3 N SLEEP 10:35
PROVIDERS: ATTEND Internal Medicine
DX: G47.33 Obstructive sleep apnea (adult) (pediatric) (principal); E66.9 Obesity, unspecified; I10 Essential (primary) hypertension; E11.9 Type 2 diabetes mellitus without complications; E78.5 Hyperlipidemia, unspecified; Z87.09 Personal history of other diseases of the respiratory system; Z68.41 Body mass index [BMI] 40.0-44.9, adult; Z85.3 Personal history of malignant neoplasm of breast; Z87.19 Personal history of other diseases of the digestive system; Z90.89 Acquired absence of other organs; Z87.891 Personal history of nicotine dependence; Z88.8 Allergy status to other drugs, medicaments and biological substances; Z90.13 Acquired absence of bilateral breasts and nipples; Z98.890 Other specified postprocedural states; Z99.89 Dependence on other enabling machines and devices; Z92.3 Personal history of irradiation
CPT/HCPCS: 99212